=== PATIENT | male | born 1975 | race Caucasian/White ===

== ENCOUNTER 2019-07-08 10:04 | Emergency (ER) | payer OTHER, SELFPAY ==
[2019-07-08 10:35] VITALS: BP 166/101; PULSE 74; RESP 16; TEMP 36.9; O2SAT 93; BMI 31.5
--- NOTE | 2019-07-08 10:40 | DI.RAD.S_ITS ---
PROCEDURE: XR FOOT RT MIN 3V INDICATIONS: pain for 3 months TECHNIQUE: 3 views of the foot were acquired. COMPARISON: [facility], CR, XR ANKLE RT MIN 3V, 07/08/2019, 10:39. FINDINGS: Bones: No displaced fractures or dislocations. No suspicious bony lesions. The Soft tissues: No tibiotalar joint effusion. Mild soft tissue side on the dorsal aspect of the midfoot and forefoot is present. No radiopaque foreign bodies are appreciated. IMPRESSION: No acute osseous abnormality of the right foot. Dictated by: Woody Kearns M.D. on 07/08/2019 at 10:08 Approved by: Woody Kearns M.D. on 07/08/2019 at 10:11
--- NOTE | 2019-07-08 10:40 | DI.RAD.S_ITS ---
PROCEDURE: XR ANKLE RT MIN 3V INDICATIONS: pain for 3 months TECHNIQUE: 3 views of the ankle were acquired. COMPARISON: [facility], CR, XR FOOT RT MIN 3V, 07/08/2019, 10:39. FINDINGS: Bones: No displaced fractures or dislocations. Ankle mortise is normally aligned. No suspicious bony lesions. Soft tissues: No tibiotalar joint effusion. Achilles tendon appears normal. IMPRESSION: No acute osseous abnormality of the right ankle. Dictated by: Woody Kearns M.D. on 07/08/2019 at 10:02 Approved by: Woody Kearns M.D. on 07/08/2019 at 10:08
--- NOTE | 2019-07-08 14:06 | ED.LOWEXIN ---
HPI - Extremity Injury (Lower) <ARSLAN Kim - Last Filed: 07/08/19 21:29> General Chief Complaint: Extremity Injury, Lower Stated Complaint: right foot/ankle swelling/pain Time Seen by Provider: 07/08/19 13:49 Source: patient Mode of arrival: Ambulatory History of Present Illness HPI Narrative: 43-year-old healthy male, presents emergency department today complaining of right ankle and foot pain. He states this started a few months ago. It is a dull aching pain that causes occasional swelling intermittently. He states the pain starts in the medial malleolus and radiates to the lateral malleolus and down his 5th metatarsal. Pain is worse about a day after use such as burning or hiking downhill. He denies any injury to the area. He denies any previous surgeries to the area. Patient denies any numbness, tingling, erythema, increased temperature, knee pain, chest pain, shortness of breath, nausea, vomiting, or diarrhea. Related Data Allergies Allergy/AdvReac Type Severity Reaction Status Date / Time No Known Drug Allergies Allergy Verified 07/08/19 10:35 Review of Systems <ARSLAN Kim - Last Filed: 07/08/19 21:29> Review of Systems Narrative: REVIEW OF SYSTEMS: GENERAL: Denies fever or chills. HENT: No head trauma. EYES: No double vision or vision loss. CARDIOVASCULAR: No chest pain or syncope. RESPIRATORY: No shortness of breath or cough. GASTROINTESTINAL: No nausea, vomiting, diarrhea, or constipation. GENITOURINARY: No flank pain or dysuria. MUSCULOSKELETAL: Complains of right foot pain, see HPI. INTEGUMENTARY: No rash, lesions, or pruritus. NEURO: No numbness, tingling. PSYCH: No behavior or mood changes. PFSH <ARSLAN Kim - Last Filed: 07/08/19 21:29> Medical History No significant social history (Acute) Social History Smoking Status: Never smoker Social History Smoking Status: Never smoker Exam <ARSLAN Kim - Last Filed: 07/08/19 21:29> Narrative Exam Narrative: PHYSICAL EXAMINATION: GENERAL: Well groomed, alert, and cooperative. Answers questions promptly and appropriately. Vital signs noted. HENT: Normocephalic, atraumatic. EYES: Symmetrical, sclera white, no periorbital swelling. CARDIOVASCULAR: S1 and S2 sounds normal. Regular rate and rhythm, no murmurs, clicks, or bruits. No pedal edema. RESPIRATORY: Normal respiratory rate, trachea midline, airway patent. No stridor, nasal flaring or accessory muscle use. Lungs are clear in all bautista. MUSCULOSKELETAL: Tenderness with palpation over the lower extensor retinaculum tendon, full range of motion of ankle and foot, no tenderness to palpation of 5th metatarsal. No swelling, surrounding erythema, or increased warmth. No lesions present. Normal gait and coordination. Equal tone and mass bilaterally. No spinal tenderness or deformities. EXTREMITIES: CMS intact. No pedal edema. SKIN: Warm, dry, soft, appropriate color for ethnicity. No lesions, rashes, or wounds. NEURO: Alert and Oriented X 3. No sensory deficits. PSYCH: Appropriate affect and mood. Initial Vital Signs Initial Vital Signs: Vital Signs Temperature 98.4 F 07/08/19 10:35 Pulse Rate 74 07/08/19 10:35 Respiratory Rate 16 07/08/19 10:35 Blood Pressure 166/101 H 07/08/19 10:35 Pulse Oximetry 93 07/08/19 10:35 <Nellie Joyner DO - Last Filed: 07/09/19 08:51> Initial Vital Signs Initial Vital Signs: Vital Signs Temperature 98.4 F 07/08/19 10:35 Pulse Rate 74 07/08/19 10:35 Respiratory Rate 16 07/08/19 10:35 Blood Pressure 166/101 H 07/08/19 10:35 Pulse Oximetry 93 07/08/19 10:35 Course <ARSLAN Kim - Last Filed: 07/08/19 21:29> Orders Ordered: Discontinued Medications Ketorolac Tromethamine (Toradol) 30 mg IM NOW ONE Stop: 07/08/19 13:59 Last Admin: 07/08/19 14:11 Dose: 30 mg Documented by: ROCIO Vital Signs Vital signs: Vital Signs - 8 hr 07/08/19 14:19 Pulse Rate 80 Respiratory Rate 18 Blood Pressure 151/105 H Pulse Oximetry 98 <Nellie Joyner DO - Last Filed: 07/09/19 08:51> Orders Ordered: Discontinued Medications Ketorolac Tromethamine (Toradol) 30 mg IM NOW ONE Stop: 07/08/19 13:59 Last Admin: 07/08/19 14:11 Dose: 30 mg Documented by: ROCIO Vital Signs Vital signs: Vital Signs - 8 hr 07/08/19 14:19 Pulse Rate 80 Respiratory Rate 18 Blood Pressure 151/105 H Pulse Oximetry 98 MDM - Extremity Injury (Lower) <Elisa ZaldivarARSLAN hernandez - Last Filed: 07/08/19 21:29> Medical Records Attestation: I reviewed the patient's medical records. Lab Data Attestation: I reviewed the patient's lab results. Imaging Data R Foot: Radiologist's impression: [address] [address] XRay Report Signed Patient: Shelton Carranza [facility]#: [id number] : 1975Acct:[id number] Age/Sex: 43 / MDate of Service: 07/08/19 Loc: ED Accession Number: [id number] Procedure: XR foot RT min 3V Ordering Provider: Nellie Joyner D.O. PROCEDURE: XR FOOT RT MIN 3V INDICATIONS: pain for 3 months TECHNIQUE: 3 views of the foot were acquired. COMPARISON: [facility], [place], XR ANKLE RT MIN 3V, 07/08/2019, 10:39. FINDINGS: Bones: No displaced fractures or dislocations. No suspicious bony lesions. The Soft tissues: No tibiotalar joint effusion. Mild soft tissue side on the dorsal aspect of the midfoot and forefoot is present. No radiopaque foreign bodies are appreciated. IMPRESSION: No acute osseous abnormality of the right foot. Dictated by: Woody Kearns M.D. on 07/08/2019 at 10:08 Approved by: Woody Kearns M.D. on 07/08/2019 at 10:11 R Ankle: Radiologist's impression: [address] [address] XRay Report Signed Patient: Shelton Carranza [facility]#: [id number] : 1975Acct:[id number] Age/Sex: 43 / MDate of Service: 07/08/19 Loc: ED Accession Number: [id number] Procedure: XR ankle RT min 3V Ordering Provider: Nellie Joyner D.O. PROCEDURE: XR ANKLE RT MIN 3V INDICATIONS: pain for 3 months TECHNIQUE: 3 views of the ankle were acquired. COMPARISON: [facility], CR, XR FOOT RT MIN 3V, 07/08/2019, 10:39. FINDINGS: Bones: No displaced fractures or dislocations. Ankle mortise is normally aligned. No suspicious bony lesions. Soft tissues: No tibiotalar joint effusion. Achilles tendon appears normal. IMPRESSION: No acute osseous abnormality of the right ankle. Dictated by: Woody Kearns M.D. on 07/08/2019 at 10:02 Approved by: Woody Kearns M.D. on 07/08/2019 at 10:08 [facility] Narrative Medical decision making narrative: I suspect that patient's symptoms are most likely caused by tendinitis (gradual onset, report of direct trauma, worsening pain with exacerbation, negative x-ray). Differential includes but is less likely fracture (negative x-ray), gout (no erythema, increased temperature, or notable swelling), or arthritis. Patient was referred to podiatry per request. Return precautions given and follow-up instructions discussed Discharge Plan Departure Patient Disposition: Home Clinical Impression: Acute ankle pain Qualifiers: Laterality: right Qualified Code(s): M25.571 - Pain in right ankle and joints of right foot Discharge Date/Time: 07/08/19 14:19 Instructions: DI for Tendinitis, DI for Ankle Pain Activity Restrictions/Additional Instructions: Thank you for entrusting me with your care today. As discussed, your x-rays are negative for any fractures. As discussed, it is possible that your foot pain is caused from inflammation such as tendinitis. We have given you anti-inflammatory today in the emergency department. Tomorrow you may take ibuprofen 600mg every 6 hours for 4 days to decrease inflammation. I have referred you to a pulp bleacher, please make an appointment as soon as possible. Return to the emergency department if you develop chest pain, shortness of breath, abdominal pain, high fevers, or other concerning symptoms. Referrals: Logan Zhu DPM [Physician] - (Right Ankle/foot pain and swelling x 3 months, neg x-tray. Evaluate and treat. )
[2019-07-08] MEDS: KETOROLAC 60 MG/2 ML VIAL 30 MG IM (14:11)
[2019-07-08 14:19] VITALS: BP 151/105; PULSE 80; RESP 18; O2SAT 98
== END 2019-07-08 14:19 | disposition home or self-care (01) ==
PROVIDERS: Emergency Provider Nurse Practitioner
DX: M25.571 Pain in right ankle and joints of right foot (principal)
CPT/HCPCS: 73610; 73630; 96372; 99282; 99283; J1885

== ENCOUNTER → 2019-11-10 09:33 | Outpatient (CLI) | payer OTHER, SELFPAY ==
--- NOTE | 2019-11-10 | DI.MRI.S_ITS ---
PROCEDURE: MRFOOT LT WO CON INDICATIONS: Contusion of left great toe without damage to nail TECHNIQUE: Noncontrast sagittal T1 spin echo and T2 fast spin echo with fat saturation, long-axis T1 spin echo and T2 fast spin echo with fat saturation, short-axis T1 spin echo and T2 fast spin echo with fat saturation through the forefoot. COMPARISON: [facility] [place], CR, XR FOOT 3+ VIEWS LEFT, 09/23/2019, 12:12. FINDINGS: Image quality: Diagnostic. Bones and joints: There is moderate marrow edema identified involving the neck and head of the 1st and 2nd metatarsals without a discrete fracture evident. There is no dislocation. A 1st metatarsal phalangeal joint effusion is present, however. Otherwise, the remainder of the imaged osseous structures of the midfoot and forefoot are within normal limits. No suspicious osseous lesions are identified. Soft tissues: Mild subcutaneous edema about the forefoot is identified that is predominantly centered about the medial aspect of the forefoot. No drainable or loculated fluid collections are evident. No soft tissue masses are appreciated. The flexor and extensor tendons of the midfoot and forefoot appear to be intact and are otherwise unremarkable. The Lisfranc ligament is grossly intact. A small amount of fluid is located between the 1st/2nd, 2nd/3rd, and 3rd/4th metatarsal heads. IMPRESSION: 1. Bone contusions of the 1st and 2nd metatarsal heads without fractures evident. 2. Soft tissue swelling about the medial aspect of the forefoot probably is related to recent injury. 3. Minimal fluid between the multiple metatarsal heads represent intermetatarsal bursitis. Dictated by: Woody Kearns M.D. on 11/10/2019 at 14:50 Approved by: Woody Kearns M.D. on 11/10/2019 at 14:54
== END ==
PROVIDERS: Referring Provider Podiatrist; Visit Provider Podiatrist
DX: S90.112D Contusion of left great toe without damage to nail, subsequent encounter (principal); M79.89 Other specified soft tissue disorders; X58.XXXD Exposure to other specified factors, subsequent encounter
CPT/HCPCS: 73718

== ENCOUNTER 2021-03-09 09:41 | Emergency (ER) | payer OTHER, SELFPAY ==
[2021-03-09 09:51] VITALS: BP 181/105; PULSE 92; RESP 18; TEMP 37; O2SAT 98; BMI 30.8
--- NOTE | 2021-03-09 09:55 | ED_ITS ---
HPI - General Adult General Chief complaint: Extremity Problem,Nontraumatic Stated complaint: swelling and pain in right foot Time Seen by Provider: 03/09/21 09:43 Source: patient Mode of arrival: Ambulatory Limitations: no limitations History of Present Illness HPI narrative: Patient is an otherwise healthy 45-year-old male here for evaluation of redness and pain to the right foot/toes. He states that approximately 1 week ago he started having discomfort at the bottom of the 2nd and 3rd toes and over this time it has now moved to his great toe. He has never had gout in the past. Has not been evaluated for this in the past. No fevers. No trauma. Related Data Previous Rx's Medication Instructions Recorded prednisone 20 mg PO BID #30 tab 03/09/21 Allergies Allergy/AdvReac Type Severity Reaction Status Date / Time No Known Drug Allergies Allergy Verified 03/09/21 09:54 Review of Systems Constitutional Constitutional: Denies fever(s) Musculoskeletal Musculoskeletal: Denies tingling Comments: Right foot pain Integumentary/Breasts Comments: Redness along the right foot Neurologic Neurologic: Denies tingling Hematologic/Lymphatic On Anticoagulants: No Allergic/Immunologic Allergic/Immunologic: Reports system reviewed and no additional complaints, except as documented Patient History Medical History No significant social history Social History Smoking Status: Never smoker Smoking Status: Never smoker alcohol intake frequency: a few times a week Substance Use Type: does not use Exam Initial Vital Signs Initial Vital Signs: Vital Signs Temperature 98.6 F 03/09/21 09:51 Pulse Rate 92 H 03/09/21 09:51 Respiratory Rate 18 03/09/21 09:51 Blood Pressure 181/105 H 03/09/21 09:51 Pulse Oximetry 98 03/09/21 09:51 Const General: cooperative and comfortable Limitations: mental status not altered HENFL Head: normal to inspection and normocephalic Cardio Pulses: dorsalis pedis present on the right Skin Other: Patient does have redness along the MTP joint of the right great toe. There is some redness however to a lesser degree along the 2nd and 3rd MTP joint. Neuro Sensory Exam: no sensory deficits noted Extrem Other: Patient does have tenderness with movement of the MTP joint of the right great toe. No ankle tenderness. No calf tenderness. Psych Appearance: grossly normal and well kempt Course Orders Ordered: ED Orders 03/09/21 09:55 XR foot RT min 3V Stat 03/09/21 10:28 Basic Metabolic Panel Stat C-Reactive Protein Quant Stat Complete Blood Count AUTO DIFF Stat Erythrocyte Sedimentation Rate Stat Uric Acid Stat Vital Signs Vital signs: Vital Signs - 8 hr 03/09/21 09:51 Temperature 98.6 F Pulse Rate 92 H Respiratory Rate 18 Blood Pressure 181/105 H Pulse Oximetry 98 Medical Decision Making Lab Data Lab results reviewed: Yes I reviewed the patient's lab results. Result diagrams: 03/09/21 10:28 03/09/21 10:28 Labs: Lab Results 03/09/21 03/09/21 Range/Units 10:28 10:28 WBC 6.6 (4.5-11.0) X10^3/uL RBC 4.20 L (4.5-5.9) X10^6/uL Hgb 12.9 L (13.5-17.5) g/dL Hct 38.1 L (41-53) % MCV 90.7 (80-100) fL MCH 30.7 (26-34) PG MCHC 33.9 (30-36) % RDW 13.1 (11.6-14.8) % Plt Count 199 (150-400) X10^3/uL Neut % (Auto) 66.2 (50-75) % Lymph % (Auto) 22.3 L (25-40) % [place] % (Auto) 9.2 (3-14) % Eos % (Auto) 1.7 L (2-4) % Baso % (Auto) 0.6 (0-2) % Neut # (Auto) 4400 (3056-4855) /uL Lymph # (Auto) 1500 (7043-0812) /uL [place] # (Auto) 600 (0-900) /uL Eos # (Auto) 100 (0-450) /uL Baso # (Auto) 0 (0-100) /uL ESR 57 H (0-15) MM/HR Sodium 139 (137-145) mmol/L Potassium 4.2 (3.4-5.1) mmol/L Chloride 105 (98-107) mmol/L Carbon Dioxide 25 (22-32) mmol/L BUN 15 (9-20) mg/dL Creatinine 0.70 (0.66-1.25) mg/dL Estimated GFR > 60.0 (>60) mL/min BUN/Creatinine Ratio 21.4 (6-22) Glucose 117 H (70-100) mg/dL Uric Acid 8.3 (3.5-8.5) mg/dL Calcium 9.7 (8.4-10.2) mg/dL C-Reactive Protein 4.0 H (<1.0) mg/dL Imaging Data Extremity x-ray #1: Radiologist's Impression: [place] [id number] [place] [id number] ReportSigned Patient: Shelton Carranza [facility]#: [id number]: 1975Acct:[id number]/Sex: 45 / MDate of Service: 03/09/21Loc: EDAccession Number: [id number] Procedure: XR foot RT min 3V Ordering Provider: Mango Villarreal D.O. PROCEDURE: XR FOOT RT MIN 3V INDICATIONS: right great toe pain TECHNIQUE: 3 views of the foot were acquired. COMPARISON: [facility], , XR FOOT RT MIN 3V, 07/08/2019, 10:39. FINDINGS: Bones: No fractures or dislocations. No suspicious bony lesions. Soft tissues: No tibiotalar joint effusion. Achilles tendon appears normal. IMPRESSION: No red cute right foot fracture or dislocation. No suspicious bony lesion. Dictated by: Beni Romero M.D. on 03/09/2021 at 10:25 Approved by: Beni Romero M.D. on 03/09/2021 at 10:29 [facility] Narrative Medical decision making narrative: Patient does not have a leukocytosis. He does have a normal uric acid. Does have an elevated ESR and CRP. His x-ray shows no signs of fracture. Did consider inflammatory versus infectious etiology. He is very well appearing. Has had symptoms for the past week and the redness has not moved up his foot. He is systemically is nontoxic. Despite the normal uric acid his physical exam today is very consistent with gout. I suspect that it is this verses a infection however we did discuss the 2 po ssibilities and he was given strict return precautions. He has been taking anti-inflammatories at home without much improvement. Plan will be is to treat this as a gout flare and have him return if his symptoms worsen. Expressed understanding and agreement. Discharge Plan Departure Patient Disposition: Home Clinical Impression: Gout Instructions: Gout (Alternative Therapy), DI for Gout Activity Restrictions/Additional Instructions: Like we discussed here in the emergency department we are going to treat this like a gout flare however if you start to feel poorly, have fevers, the redness started spreading up your foot you do need to return to the emergency department for further evaluation. Contact your medical department for follow-up. Prescriptions: New prednisone 20 mg tablet 20 mg PO BID Qty: 30 RF: 0 Referrals: Pedro Farmer [Primary Care Provider] -
[2021-03-09 10:36] LABS: Add Manual Diff / Slide Review NO; Basophils Absolute Auto 0 /uL (0-100); Basophils Percent Auto 0.6 % (0-2); Eosinophils Absolute Auto 100 /uL (0-450); Eosinophils Percent Auto 1.7 % (2-4); Hematocrit 38.1 % (41-53); Hemoglobin 12.9 g/dL (13.5-17.5); Lymphocytes Absolute Auto 1500 /uL (1100-4500); Lymphocytes Percent Auto 22.3 % (25-40); Mean Corpuscular HGB Conc 33.9 % (30-36); Mean Corpuscular Hemoglobin 30.7 PG (26-34); Mean Corpuscular Volume 90.7 fL (80-100); Monocytes Absolute Auto 600 /uL (0-900); Monocytes Percent Auto 9.2 % (3-14); Neutrophils Absolute Auto 4400 /uL (1500-7000); Neutrophils Percent Auto 66.2 % (50-75); Platelet Count 199 X10^3/uL (150-400); Red Cell Distribution Width 13.1 % (11.6-14.8); White Blood Cell Count 6.6 X10^3/uL (4.5-11.0)
[2021-03-09 10:52] LABS: BUN Creatinine Ratio 21.4 (6-22); Blood Urea Nitrogen 15 mg/dL (9-20); Calcium 9.7 mg/dL (8.4-10.2); Carbon Dioxide 25 mmol/L (22-32); Chloride 105 mmol/L (98-107); Estimated Glomerular Filt Rate > 60.0 mL/min (>60); Glucose 117 mg/dL (70-100); HEMOLYSIS < 15 (0-50); Potassium 4.2 mmol/L (3.4-5.1); Sodium 139 mmol/L (137-145); Uric Acid 8.3 mg/dL (3.5-8.5)
[2021-03-09 10:55] LABS: Erythrocyte Sedimentation Rate 57 MM/HR (0-15)
[2021-03-09 11:56] VITALS: BP 152/76; PULSE 78; RESP 17; O2SAT 99
== END 2021-03-09 11:57 | disposition home or self-care (01) ==
PROVIDERS: Emergency Provider Emergency Medicine
DX: M10.9 Gout, unspecified (principal)
CPT/HCPCS: 36415; 73630; 80048; 84550; 85025; 85651; 86140; 99283; 99284

== ENCOUNTER → 2024-02-09 15:46 | Outpatient (CLI) | payer OTHER, SELFPAY ==
--- NOTE | 2024-02-09 15:48 | DI.MRI.S_ITS ---
PROCEDURE: MR ANKLE LT WO CON INDICATIONS: Pain in right ankle;Pain in left ankle TECHNIQUE: Noncontrast sagittal T1 spin echo and T2 fast spin echo with fat saturation, axial proton density fast spin echo and T2 fast spin echo with fat saturation, coronal T1 spin echo and T2 fast spin echo with fat saturation through the ankle/hindfoot. COMPARISON: None. FINDINGS: Image quality: Excellent Tendons: Mild tenosynovitis of the posterior tibialis and the flexor digitorum longus. The flexor hallucis longus is unremarkable. The peroneal, extensor, in the distal Achilles tendon are unremarkable. Trace retrocalcaneal bursitis. Ligaments: There is a large osteophyte arising from the lateral malleolus at the expected location of the anterior tibiofibular ligament, likely representing prior injury. There is pseudoarthrosis of this lateral malleolar osteophyte with the lateral aspect of tibial plafond, with mild associated subchondral cystic changes and marrow edema. The anterior tibiofibular ligament is thinned, representing prior sprain, but is intact. The posterior tibiofibular ligament is intact. Prior sprain of the anterior talofibular ligament. The posterior talofibular ligament is intact. Prior sprain of the deep portion of the deltoid ligament. Sinus tarsi: No fibrosis. Plantar fascia: Unremarkable. Muscles: Unremarkable Bones: Mild marrow edema at the medial malleolus, likely reactive. No osteochondral lesion of the talus dome. Multifocal subchondral marrow edema within the tarsal bones, likely representing the moderate degenerative changes. No acute fracture. Please see above. Small tibiotalar and small posterior subtalar effusion. IMPRESSION: 1. Large osteophyte arising from the lateral malleolus with pseudoarthrosis and mild degenerative changes with the latter aspect of tibial plafond. 2. Prior sprain of the lateral and medial ankle ligament without full-thickness tear. 3. Moderate degenerative changes in the midfoot. Dictated by: Angelica La M.D. on 02/09/2024 at 16:40 Approved by: Angelica La M.D. on 02/09/2024 at 16:50
--- NOTE | 2024-02-09 16:04 | DI.MRI.S_ITS ---
PROCEDURE: MR ANKLE RT WO/W CON INDICATIONS: Pain in right ankle;Pain in left ankle TECHNIQUE: Noncontrast sagittal T1 spin echo and T2 fast spin echo with fat saturation, axial proton density fast spin echo and T2 fast spin echo with fat saturation, axial T1 spin echo with fat saturation, coronal T1 spin echo and T2 fast spin echo with fat saturation through the ankle/hindfoot. Post-contrast axial, coronal, and sagittal T1 spin echo with fat saturation through the ankle/hindfoot. COMPARISON: [facility] [place], [place], XR ANKLE 3+ VIEWS RIGHT, 01/13/2024, 16:30. FINDINGS: Image quality: Excellent Corresponding to the pain marker about the medial malleolus, there is a 7 mm T1 hypointense, T2 hyperintense nodule with enhancement in the subcutaneous fat, immediately abutting the medial cortex of the tibial plafond, with associated mild erosion. There is associated mild marrow edema in the medial tibial plafond. Tendons: Mild tenosynovitis of the posterior tibialis and the flexor digitorum longus. The flexor hallucis longus is unremarkable. The peroneal, extensor, in the distal Achilles tendon is unremarkable. Trace retrocalcaneal bursitis. Ligaments: The anterior and posterior tibial fibular ligaments are intact. The anterior and posterior talofibular ligaments are intact. The calcaneofibular ligament is intact. Prior sprain of the deep portion of the deltoid ligament. Sinus tarsi: No fibrosis. Plantar fascia: Unremarkable Muscles: Unremarkable Bones: Please see above. In addition, there is marrow edema about the 5th tarsal metatarsal joint, most pronounced at the base of the 5th metatarsal, favoring degenerative. There is marked marrow edema about the 2nd tarsometatarsal joint, favored to represent moderate degenerative changes as well. Marrow edema of the proximal 2nd metatarsal diaphysis, partially visualize , nonspecific. No associated fracture line. 9 mm ganglion cyst medial to the 1st tarsometatarsal joint. No significant tibiotalar or posterior subtalar effusion. IMPRESSION: 1. 7 mm enhancing nodule in the subcutaneous fat of the medial ankle, resulting in erosion and mild marrow edema of the medial tibial plafond. Recommend further evaluation with tissue sampling. This lesion should be accessible by ultrasound approach. 2. Marrow edema about the 2nd and 5th tarsometatarsal joint, favored to represent moderate degenerative changes. Additional marrow edema of the proximal 2nd metatarsal diaphysis, partially visualized and is nonspecific. 3. 9 mm ganglion cyst medial to the 1st tarsometatarsal joint. Dictated by: Angelica La M.D. on 02/10/2024 at 9:24 Approved by: Angelica La M.D. on 02/10/2024 at 9:36
== END ==
PROVIDERS: Referring Provider Podiatrist; Visit Provider Podiatrist
DX: M65.872 Other synovitis and tenosynovitis, left ankle and foot (principal); M65.871 Other synovitis and tenosynovitis, right ankle and foot; R22.41 Localized swelling, mass and lump, right lower limb; M67.471 Ganglion, right ankle and foot; M25.472 Effusion, left ankle; M25.772 Osteophyte, left ankle; R60.0 Localized edema; M25.572 Pain in left ankle and joints of left foot; M25.571 Pain in right ankle and joints of right foot; Z87.828 Personal history of other (healed) physical injury and trauma
CPT/HCPCS: 73721; 73723; A9579

== ENCOUNTER → 2024-08-09 11:57 | Outpatient (CLI) | payer OTHER, SELFPAY ==
--- NOTE | 2024-08-09 12:40 | DI.RAD.S_ITS ---
PROCEDURE: XR HAND LT MIN 3V INDICATIONS: Other specified arthritis, unspecified site TECHNIQUE: 3 views of the hand(s) acquired. COMPARISON: None. FINDINGS: Bones: There are no osseous abnormalities Joints: Minimal degenerative changes seen in the 1st CMC and all interphalangeal joints. Mild periarticular osteoporosis seen in all joints. Soft tissues: No soft tissue abnormality. IMPRESSION: Minimal degenerative change 1st CMC and all interphalangeal joints Dictated by: Yuan Mendoza M.D. on 08/10/2024 at 9:58 Approved by: Yuan Mendoza M.D. on 08/10/2024 at 10:00
--- NOTE | 2024-08-09 12:40 | DI.RAD.S_ITS ---
PROCEDURE: XR TIBIA FIBULA LT 2V INDICATIONS: Other specified arthritis, unspecified site TECHNIQUE: 2 views of the tibia and fibula were acquired. COMPARISON: None. FINDINGS: Bones: There are no osseous abnormalities Joints: The joint spaces are normal in width and alignment without arthritic change. Soft tissues: No soft tissue abnormality. IMPRESSION: Normal. Dictated by: Yuan Mendoaz M.D. on 08/10/2024 at 10:03 Approved by: Yuan Mendoza M.D. on 08/10/2024 at 10:03
--- NOTE | 2024-08-09 12:40 | DI.RAD.S_ITS ---
PROCEDURE: XR HAND RT MIN 3V INDICATIONS: Other specified arthritis, unspecified site TECHNIQUE: 3 views of the hand(s) acquired. COMPARISON: None. FINDINGS: Bones: There are no osseous abnormalities Joints: Minimal degenerative change is present in the distal radial ulnar, 1st CMC and all interphalangeal joints. There is mild periarticular osteoporosis in all joints. Soft tissues: No soft tissue abnormality. IMPRESSION: Minimal degeneration Dictated by: Yuan Mendoza M.D. on 08/10/2024 at 9:55 Approved by: Yuan Mendoza M.D. on 08/10/2024 at 9:56
--- NOTE | 2024-08-09 12:40 | DI.RAD.S_ITS ---
PROCEDURE: XR FOOT LT MIN 3V INDICATIONS: Other specified arthritis, unspecified site TECHNIQUE: 3 views of the foot were acquired. COMPARISON: [facility], CR, XR FOOT RT MIN 3V, 03/09/2021, 10:18. FINDINGS: Bones: Prominent spurring from the anterior tibial plafond may predispose to anterior impingement on ankle dorsiflexion. 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 Joints: Moderate 1st MTP degenerative change noted . there is also mild to moderate degenerative change in all interphalangeal joints Soft tissues: No soft tissue abnormality. IMPRESSION: Chronic findings that as described Dictated by: Yuan Mendoza M.D. on 08/10/2024 at 9:56 Approved by: Yuan Mendoza M.D. on 08/10/2024 at 9:58
--- NOTE | 2024-08-09 12:40 | DI.RAD.S_ITS ---
PROCEDURE: XR FOOT RT MIN 3V INDICATIONS: Other specified arthritis, unspecified site TECHNIQUE: 3 views of the foot were acquired. COMPARISON: [facility], CR, XR FOOT RT MIN 3V, 03/09/2021, 10:18. 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 Joints: Mild degenerative change present the 1st MTP and all interphalangeal joints. Soft tissues: No soft tissue abnormality. IMPRESSION: Mild degeneration Dictated by: Yuan Mendoza M.D. on 08/10/2024 at 10:00 Approved by: Yuan Mendoza M.D. on 08/10/2024 at 10:01
== END ==
PROVIDERS: Referring Provider Chiropractor; Visit Provider Chiropractor
DX: M13.80 Other specified arthritis, unspecified site (principal); R05.3 Chronic cough; R93.6 Abnormal findings on diagnostic imaging of limbs
CPT/HCPCS: 73130; 73590; 73630; 94060

== ENCOUNTER → 2025-01-07 07:19 | Outpatient (CLI) | payer OTHER, SELFPAY ==
[2025-01-07 07:37] LABS: Hematocrit 38.1 % (41-53); Hemoglobin 12.9 g/dL (13.5-17.5); Mean Corpuscular HGB Conc 33.8 % (30-36); Mean Corpuscular Hemoglobin 30.2 PG (26-34); Mean Corpuscular Volume 89.3 fL (80-100); Platelet Count 254 X10^3/uL (150-400); Red Blood Cell Count 4.27 X10^6/uL (4.5-5.9); White Blood Cell Count 5.1 X10^3/uL (4.5-11.0)
[2025-01-07 08:07] LABS: Hemoglobin A1C% w Est Avg Glu 5.1 % (4.0-6.0)
[2025-01-07 08:14] LABS: Alanine Aminotransferase 33 IU/L (<50); Albumin 4.6 g/dL (3.5-5.0); Albumin Globulin Ratio 1.6 (1.0-2.8); Alkaline Phosphatase 78 U/L (38-126); Aspartate Aminotransferase 36 IU/L (17-59); BUN Creatinine Ratio 22.7 (6-22); Bilirubin Total 0.4 mg/dL (0.2-1.3); Blood Urea Nitrogen 20 mg/dL (9-20); Calcium 9.8 mg/dL (8.4-10.2); Carbon Dioxide 23 mmol/L (22-32); Chloride 105 mmol/L (98-107); Cholesterol 210 mg/dL (140-199); Estimated Glomerular Filt Rate > 60 mL/min (>60); Globulin 2.8 g/dL (1.7-4.1); Glucose 103 mg/dL (70-100); HDL Cholesterol 29 mg/dL (40-60); HEMOLYSIS < 15 (0-50); LDL Cholesterol Calculated 162 mg/dL (<100); Potassium 4.7 mmol/L (3.4-5.1); Sodium 139 mmol/L (137-145); Total Protein 7.4 g/dL (6.3-8.2); Triglycerides 93 mg/dL (35-150)
[2025-01-07 08:29] LABS: Microalbumin Urine Random 3.1 mg/dL (0-1.6)
[2025-01-07 08:31] LABS: Creatinine Urine Random 132.98 mg/dL
[2025-01-19 06:41] LABS: Percent Free Testosterone 3.29 % (1.50-4.20); Testosterone Total 1003.1 ng/dL (264.0-916.0)
== END ==
PROVIDERS: Family Provider Family Medicine; PCP Family Medicine; Referring Provider Family Medicine; Visit Provider Family Medicine
DX: I10 Essential (primary) hypertension (principal); R79.89 Other specified abnormal findings of blood chemistry
CPT/HCPCS: 36415; 80053; 80061; 82043; 82570; 83036; 84402; 84403; 85027

== ENCOUNTER → 2025-04-15 08:57 | Outpatient (CLI) | payer OTHER, SELFPAY ==
[2025-04-15 10:37] LABS: Estradiol, Total 29.3 pg/mL
== END ==
PROVIDERS: Family Provider Family Medicine; PCP Family Medicine; Referring Provider Urology; Visit Provider Urology
DX: R79.89 Other specified abnormal findings of blood chemistry (principal)
CPT/HCPCS: 36415; 82670; 84403

== ENCOUNTER 2025-04-29 09:00 | Outpatient (RCR) | payer OTHER, SELFPAY ==
--- NOTE | 2025-01-21 16:18 | PT.OIE ---
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 Eczema (~2006) Essential hypertension Fracture (~1984) Gout (~2021) Knee pain (~2006) Low testosterone in male No significant social history Tinnitus (~2014) Past Surgical History (Last Updated 01/03/25 @ 20:42 by Lillian Sharma) Anesthesia History of ankle surgery (~06/2024) Hx of LASIK (~05/2014) Radius/ulna fracture (~1979) Visit Care Team Role Provider Type Tremayne Schultz MD Attending Provider Physician Family Provider Primary Care Provider Referring Provider Specialty: Family Practice Obstetrics Address: [address] [place] [address], [facility] Email: [email or web address] Physical Therapy Initial Evaluation PT-OP-A Visit Information Start: 01/21/25 15:37 Freq: Status: Active Protocol: Document 01/21/25 09:00 DCW (Rec: 01/21/25 16:18 DC [id number]) Out-Patient Physical Therapy Visit Information Visit Information Visit Type Initial Evaluation Visit Start Time 09:00 Visit Stop Time 09:45 Visit Number 1 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 Pt reports initial injury occurred weight-lifting while doing a press, hurt enough that he was unable to lift for six months, then slowly recovered, and then for the next ~8 years, didn't bother him. Starting one year ago, the pain returned with no apparent injury. 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 Notes it hurts in [employer] classes, with rotation of his right arm, and with overhead movement. Has been fairly stable over the past year, but hoping pt will help in improve. Pt also complaining of bilateral, R>L foot pain. 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 Has a history of cuboid displacements bilaterally. Earlier this year had was was deemed an inflammation in both his great toe MTP, but was not gout. Recently has had fairly extensive soft tissue bruising along his medial right ankle, thinks it occurred following a day of standing for ~8 hours on concrete. Prior Treatments and Tests Right ankle MRI: IMPRESSION: 1. 7 mm enhancing nodule in the subcutaneous fat of the medial ankle, resulting in erosion and mild marrow edema of the medial tibial plafond. Recommend further evaluation with tissue sampling. This lesion should be accessible by ultrasound approach. 2. Marrow edema about the 2nd and 5th tarsometatarsal joint, favored to represent moderate degenerative changes. Additional marrow edema of the proximal 2nd metatarsal diaphysis, partially visualized and is nonspecific. 3. 9 mm ganglion cyst medial to the 1st tarsometatarsal joint. per Angelica La M.D. on 02/10/2024 Right foot x-ray: IMPRESSION: Mild degeneration. per Yuan Mendoza M.D. on 2023 PT-OP-C Subjective Start: 01/21/25 15:37 Freq: Status: Active Protocol: Document 01/21/25 09:00 DCW (Rec: 01/21/25 16:18 [facility] [id number]) OP-PT Subjective Patient Comments Patient Comments There's a lot of popping when I'm moving my arm in [employer] class, luckily the younger guys take it easy on me. Patient Questionnaires Quick Dash- Upper Extremity Quick Dash UE Score 25% Quick Dash UE Impairment 20 to 39% Impaired (Score 20- 39) PT-OP-F Manual Assessment Start: 01/21/25 15:37 Freq: Status: Active Protocol: Document 01/21/25 09:00 DCW (Rec: 01/21/25 16:18 DCW [id number]) Manual Assessments Soft Tissue Assessment Soft Tissue Mobility Assessment Tenderness to palpation 2/4: pain with wincing along R subacromial space, R supraspinatus, R infraspinatus , R posterior tib tendon, R deltoid ligament Joint Mobility Assessment Joint Mobility Assessment Moderate passive and active restriction of right 1st MTP joint, severe restriction in 1st IP joint PT-OP-K Range of Motion Start: 01/21/25 15:37 Freq: Status: Active Protocol: Document 01/21/25 09:00 DCW (Rec: 01/21/25 16:18 DCW [id number]) Shoulder Goniometric Range of Motion Shoulder Right Active Shoulder ROM WFL Yes Testing Position Sitting Flexion 180 Abduction 180 External Rotation at 0 degrees Abduction 75 Left Active Shoulder ROM WFL Yes Testing Position Sitting Flexion 180 Abduction 180 External Rotation at 0 degrees Abduction 75 Toe Range of Motion Toe Right Great Toe Toe ROM WFL Yes MTP Flexion Active (degrees) 14 MTP Extension Active (degrees) 28 Comments 1st IP active flexion lacking 6? from neutral. IP extension to 10? PT-OP-L Special Tests Start: 01/21/25 15:37 Freq: Status: Active Protocol: Document 01/21/25 09:00 DCW (Rec: 01/21/25 16:18 DCW [id number]) Special Tests Shoulder Special Tests Speed's Biceps Test Results Negative Grind Labrum Test Results Negative Painful Arc Test Results Positive R Passive ER Rotator Cuff Test Results Negative Lift-Off Rotator Cuff Test Results Positive R Mata Jeanc Laude Impingement Test Results Positive R Empty Can Test Results Positive R Drop Arm Rotator Cuff Test Results Negative Belly Press Test Results Negative Apprehension Test Test Results Negative PT-OP-M Strength Start: 01/21/25 15:37 Freq: Status: Active Protocol: Document 01/21/25 09:00 DCW (Rec: 01/21/25 16:18 DCW [id number]) Shoulder Strength Shoulder Manual Muscle Testing Right Flexion 5 Normal Abduction (C5) 4 Good External Rotation 5 Normal Internal Rotation 5 Normal Left Flexion 5 Normal Abduction (C5) 5 Normal External Rotation 5 Normal Internal Rotation 5 Normal PT-OP-T Assessment and Plan Start: 01/21/25 15:37 Freq: Status: Active Protocol: Document 01/21/25 09:00 DCW (Rec: 01/21/25 16:18 DCW [id number]) Physical Therapy Assessment Rehab Potential Rehabilitation Potential Good Evaluation Complexity Number of Personal Factors/Comorbidities 3 or More Number of Body Systems Impaired 4 or More Clinical Presentation at Evaluation Unstable Impairments Impairments Activity Tolerance,Functional Activities,Functional Mobility ,Pain,ROM,Soft Tissue Mobility ,Strength,Tone Goals Three Impairment ROM limitations in right great toe impact gait Guidance Counselor Goal (LTG) Pt to demonstrate improved great toe ROM to at least 45? extension at the MTP in order to help normalize gait pattern and reduce compensatory gait strategies. LTG Duration 03/23/25 Two Impairment Pt limited in [employer] class due to right shoulder pain Guidance Counselor Goal (LTG) Pt to exhibit negative painful arc and empty can testing to demonstrate improved shoulder function and return to full participation in [employer] class . LTG Duration 03/23/25 One Impairment Pt does not have an appropriate home exercise program Short Term Goal (STG) Pt to be independent and compliant with an appropriate HEP STG Duration 02/20/25 Assessment Summary Assessment Pt presents with signs and symptoms consistent with referring diagnosis. Pt's shoulder complaints appear suggestive of potential supraspinatus involvement, possibly subacromial impingement. Pain currently limiting his ability to perform overhead activities and fully participate in [employer]. Will likely benefit from strengthening of the shoulder complex, joint mobilization, flexibility, and improving scapulothoracic rhythm. His feet are more difficult to DDx. Between the tenderness along his right medial malleous and deltoid ligaments, and the medial bruising, appears to have recently suffered a ankle sprain, which pt denies. Additionally has some substantial limitations in his right great toe ROM, at both the MTP and IP joints. May benefit from strengthening of the intrinsic foot musculature , joint mobilizations, gait training, flexibility, STM to calf, and taping. Physical Therapy Plan Frequency and Duration Frequency of Treatment 1x/Week Plan of Care Start Date 01/21/25 Plan of Care End Date 03/23/25 Therapeutic Interventions Therapeutic Interventions Balance Training,Gait Training ,Home Exercise Program,Joint Mobilizations,Manual Therapy, Neuromuscular Re-education, Patient/Caregiver Education, Self-Care/Home Management,Soft Tissue Mobilization,Taping, Therapeutic Activities, Therapeutic Exercises Modalities Cold Pack/Ice Massage,Electric Stimulation,Hot Packs, Ultrasound Next Visit Focus/Plan Next Note Type Treatment Note Next Visit Plan Joint mobs, STM, strengthening , gait training
--- NOTE | 2025-01-21 16:19 | PT.OPPOC ---
Physical, Occupational & Speech Therapy At [facility] Current Diagnoses Other chronic pain (01/21/25) Pain in right shoulder (01/21/25) Pain in right ankle and joints of right foot (01/21/25) Pain in right foot (01/21/25) Pain in left foot (01/21/25) Visit Care Team Role Provider Type Tremayne Schultz MD Attending Provider Physician Family Provider Primary Care Provider Referring Provider Specialty: Family Practice Obstetrics Address: [facility] [place], [address] Email: [email or web address] Plan Of Care PT-OP-B Current Condition Start: 01/21/25 15:37 Freq: Status: Active Protocol: Document 01/21/25 09:00 DCW (Rec: 01/21/25 16:18 DCW [id number]) Current Condition History of Current Condition Onset Date ~10 year history Current Complaints Right shoulder pain, bilateral foot pain History of Current Condition Pt is a 49 year old male presenting with a ten year history of right shoulder pain . Pt reports initial injury occurred weight-lifting while doing a press, hurt enough that he was unable to lift for six months, then slowly recovered, and then for the next ~8 years, didn't bother him. Starting one year ago, the pain returned with no apparent injury. 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 Has been fairly stable over the past year, but hoping pt will help in improve. Pt also complaining of bilateral, R>L foot pain. 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 Has a history of cuboid displacements bilaterally. Earlier this year had was was deemed an inflammation in both his great toe MTP, but was not gout. Recently has had fairly extensive soft tissue bruising along his medial right ankle, thinks it occurred following a day of standing for ~8 hours on concrete. Prior Treatments and Tests Right ankle MRI: IMPRESSION: 1. 7 mm enhancing nodule in the subcutaneous fat of the medial ankle, resulting in erosion and mild marrow edema of the medial tibial plafond. Recommend further evaluation with tissue sampling. This lesion should be accessible by ultrasound approach. 2. Marrow edema about the 2nd and 5th tarsometatarsal joint, favored to represent moderate degenerative changes. Additional marrow edema of the proximal 2nd metatarsal diaphysis, partially visualized and is nonspecific. 3. 9 mm ganglion cyst medial to the 1st tarsometatarsal joint. per Angelica La M.D. on 02/10/2024 Right foot x-ray: IMPRESSION: Mild degeneration. per Yuan Mendoza M.D. on 2023 PT-OP-T Assessment and Plan Start: 01/21/25 15:37 Freq: Status: Active Protocol: Document 01/21/25 09:00 DCW (Rec: 01/21/25 16:18 DCW [id number]) Physical Therapy Assessment Rehab Potential Rehabilitation Potential Good Evaluation Complexity Number of Personal Factors/Comorbidities 3 or More Number of Body Systems Impaired 4 or More Clinical Presentation at Evaluation Unstable Impairments Impairments Activity Tolerance,Functional Activities,Functional Mobility ,Pain,ROM,Soft Tissue Mobility ,Strength,Tone Goals Three Impairment ROM limitations in right great toe impact gait Snf Goal (LTG) Pt to demonstrate improved great toe ROM to at least 45? extension at the MTP in order to help normalize gait pattern and reduce compensatory gait strategies. LTG Duration 03/23/25 Two Impairment Pt limited in [employer] class due to right shoulder pain Snf Goal (LTG) Pt to exhibit negative painful arc and empty can testing to demonstrate improved shoulder function and return to full participation in [employer] class . LTG Duration 03/23/25 One Impairment Pt does not have an appropriate home exercise program Short Term Goal (STG) Pt to be independent and compliant with an appropriate HEP STG Duration 02/20/25 Assessment Summary Assessment Pt presents with signs and symptoms consistent with referring diagnosis. Pt's shoulder complaints appear suggestive of potential supraspinatus involvement, possibly subacromial impingement. Pain currently limiting his ability to perform overhead activities and fully participate in [employer]itsu. Will likely benefit from strengthening of the shoulder complex, joint mobilization, flexibility, and improving scapulothoracic rhythm. His feet are more difficult to DDx. Between the tenderness along his right medial malleous and deltoid ligaments, and the medial bruising, appears to have recently suffered a ankle sprain, which pt denies. Additionally has some substantial limitations in his right great toe ROM, at both the MTP and IP joints. May benefit from strengthening of the intrinsic foot musculature , joint mobilizations, gait training, flexibility, STM to calf, and taping. Physical Therapy Plan Frequency and Duration Frequency of Treatment 1x/Week Plan of Care Start Date 01/21/25 Plan of Care End Date 03/23/25 Therapeutic Interventions Therapeutic Interventions Balance Training,Gait Training ,Home Exercise Program,Joint Mobilizations,Manual Therapy, Neuromuscular Re-education, Patient/Caregiver Education, Self-Care/Home Management,Soft Tissue Mobilization,Taping, Therapeutic Activities, Therapeutic Exercises Modalities Cold Pack/Ice Massage,Electric Stimulation,Hot Packs, Ultrasound Next Visit Focus/Plan Next Note Type Treatment Note Next Visit Plan Joint mobs, STM, strengthening , gait training Plan of Care Dates Plan of Care Start Date 01/21/25 Plan of Care End Date 03/23/25 Electronically Signed by: Alexy Sharp, PT 01/21/25 3106 If you are in agreement with this Plan of Care, please return a signed and dated copy. I have reviewed this Plan of Care and certify that the skilled therapy services above are required to meet the patient?s needs. Physician Signature Date Printed Name and Credentials Clinical Instructor Signature Printed Name and Credentials
--- NOTE | 2025-01-28 09:46 | PT.OTN ---
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 Pt reports initial injury occurred weight-lifting while doing a press, hurt enough that he was unable to lift for six months, then slowly recovered, and then for the next ~8 years, didn't bother him. Starting one year ago, the pain returned with no apparent injury. 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 Notes it hurts in [employer] classes, with rotation of his right arm, and with overhead movement. Has been fairly stable over the past year, but hoping pt will help in improve. Pt also complaining of bilateral, R>L foot pain. 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 Has a history of cuboid displacements bilaterally. Earlier this year had was was deemed an inflammation in both his great toe MTP, but was not gout. Recently has had fairly extensive soft tissue bruising along his medial right ankle, thinks it occurred following a day of standing for ~8 hours on concrete. Prior Treatments and Tests Right ankle MRI: IMPRESSION: 1. 7 mm enhancing nodule in the subcutaneous fat of the medial ankle, resulting in erosion and mild marrow edema of the medial tibial plafond. Recommend further evaluation with tissue sampling. This lesion should be accessible by ultrasound approach. 2. Marrow edema about the 2nd and 5th tarsometatarsal joint, favored to represent moderate degenerative changes. Additional marrow edema of the proximal 2nd metatarsal diaphysis, partially visualized and is nonspecific. 3. 9 mm ganglion cyst medial to the 1st tarsometatarsal joint. per Angelica La M.D. on 02/10/2024 Right foot x-ray: IMPRESSION: Mild degeneration. per Yuan Mendoza M.D. on 2023 PT-OP-C Subjective Start: 01/21/25 15:37 Freq: Status: Active Protocol: Document 01/28/25 09:00 DCW (Rec: 01/28/25 09:46 DCW [id number]) OP-PT Subjective Patient Comments Patient Comments My right shoulder is feeling a little better, but I think that's because I hurt my left shoulder, so now my focus is there instead. PT-OP-F Manual Assessment Start: 01/21/25 15:37 Freq: Status: Active Protocol: Document 01/21/25 09:00 DCW (Rec: 01/21/25 16:18 DCW [id number]) Manual Assessments Soft Tissue Assessment Soft Tissue Mobility Assessment Tenderness to palpation 2/4: pain with wincing along R subacromial space, R supraspinatus, R infraspinatus , R posterior tib tendon, R deltoid ligament Joint Mobility Assessment Joint Mobility Assessment Moderate passive and active restriction of right 1st MTP joint, severe restriction in 1st IP joint PT-OP-K Range of Motion Start: 01/21/25 15:37 Freq: Status: Active Protocol: Document 01/21/25 09:00 DCW (Rec: 01/21/25 16:18 DCW [id number]) Shoulder Goniometric Range of Motion Shoulder Right Active Shoulder ROM WFL Yes Testing Position Sitting Flexion 180 Abduction 180 External Rotation at 0 degrees Abduction 75 Left Active Shoulder ROM WFL Yes Testing Position Sitting Flexion 180 Abduction 180 External Rotation at 0 degrees Abduction 75 Toe Range of Motion Toe Right Great Toe Toe ROM WFL Yes MTP Flexion Active (degrees) 14 MTP Extension Active (degrees) 28 Comments 1st IP active flexion lacking 6? from neutral. IP extension to 10? PT-OP-L Special Tests Start: 01/21/25 15:37 Freq: Status: Active Protocol: Document 01/21/25 09:00 DCW (Rec: 01/21/25 16:18 MDW [id number]) Special Tests Shoulder Special Tests Speed's Biceps Test Results Negative Grind Labrum Test Results Negative Painful Arc Test Results Positive R Passive ER Rotator Cuff Test Results Negative Lift-Off Rotator Cuff Test Results Positive R Mata Jean Claude Impingement Test Results Positive R Empty Can Test Results Positive R Drop Arm Rotator Cuff Test Results Negative Belly Press Test Results Negative Apprehension Test Test Results Negative PT-OP-M Strength Start: 01/21/25 15:37 Freq: Status: Active Protocol: Document 01/21/25 09:00 DCW (Rec: 01/21/25 16:18 DCW [id number]) Shoulder Strength Shoulder Manual Muscle Testing Right Flexion 5 Normal Abduction (C5) 4 Good External Rotation 5 Normal Internal Rotation 5 Normal Left Flexion 5 Normal Abduction (C5) 5 Normal External Rotation 5 Normal Internal Rotation 5 Normal PT-OP-Q Treatments Start: 01/21/25 15:37 Freq: Status: Active Protocol: Document 01/28/25 09:00 DCW (Rec: 01/28/25 09:46 [facility] [id number]) Therapeutic Exercises Supine Exercises Serratus Punch Supine Exercise Name Serratus Punch Side bilateral Resistance 5# Prone Exercises I's, Y's, T's Prone Exercise Name I's, Y's, T's Side right Resistance 5# Sitting Exercises [place] Pick-up Sitting Exercise Name [place] Pick-up Side right Comments Intrinsic foot strengthening Manual Therapy Treatment Consent Patient gave verbal consent for manual Yes treatment Joint Mobilizations Shoulder Joint R GH Direction Inferior Grade III Body Position Supine Great Toe Joint R Great Toe Grade III Body Position Sitting Comments MTP, IP PT-OP-T Assessment and Plan Start: 01/21/25 15:37 Freq: Status: Active Protocol: Document 01/28/25 09:00 DCW (Rec: 01/28/25 09:46 DCW [id number]) Physical Therapy Assessment Impairments Impairments Activity Tolerance,Functional Activities,Functional Mobility ,Pain,ROM,Soft Tissue Mobility ,Strength,Tone Goals Three Impairment ROM limitations in right great toe impact gait Long-Term Goal (LTG) Pt to demonstrate improved great toe ROM to at least 45? extension at the MTP in order to help normalize gait pattern and reduce compensatory gait strategies. LTG Duration 03/23/25 Two Impairment Pt limited in [employer] class due to right shoulder pain Core Machine Tender Goal (LTG) Pt to exhibit negative painful arc and empty can testing to demonstrate improved shoulder function and return to full participation in [employer] class . LTG Duration 03/23/25 One Impairment Pt does not have an appropriate home exercise program Short Term Goal (STG) Pt to be independent and compliant with an appropriate HEP STG Duration 02/20/25 Assessment Summary Assessment Good response to treatment, pt showing increased MTP ROM. Agreeable to new HEP exercises . Pt did note increased L shoulder pain with activity, focused on just R. Continue to work on STM, joint mobs, and strengthening. Physical Therapy Plan Frequency and Duration Frequency of Treatment 1x/Week Plan of Care Start Date 01/21/25 Plan of Care End Date 03/23/25 Therapeutic Interventions Therapeutic Interventions Balance Training,Gait Training ,Home Exercise Program,Joint Mobilizations,Manual Therapy, Neuromuscular Re-education, Patient/Caregiver Education, Self-Care/Home Management,Soft Tissue Mobilization,Taping, Therapeutic Activities, Therapeutic Exercises Modalities Cold Pack/Ice Massage,Electric Stimulation,Hot Packs, Ultrasound Next Visit Focus/Plan Next Note Type Treatment Note Next Visit Plan Joint mobs, STM, strengthening , gait training
--- NOTE | 2025-02-04 09:44 | PT.OTN ---
Current Diagnoses Other chronic pain (02/04/25) Pain in right shoulder (02/04/25) Pain in right ankle and joints of right foot (02/04/25) Pain in right foot (02/04/25) Pain in left foot (02/04/25) Physical Therapy Treatment Note PT-OP-A Visit Information Start: 01/21/25 15:37 Freq: Status: Active Protocol: Document 02/04/25 07:26 AB (Rec: 02/04/25 09:04 AB Laptop) Out-Patient Physical Therapy Visit Information Visit Information Visit Type Treatment Note Visit Start Time 08:19 Visit Stop Time 09:02 Visit Number 3 Number of [employer] WORKER COMPOSITES Visits 1 Evaluation Information Evaluation Date 01/21/25 PT-OP-B Current Condition Start: 01/21/25 15:37 Freq: Status: Active Protocol: Document 01/21/25 09:00 DCW (Rec: 01/21/25 16:18 DCW [id number]) Current Condition History of Current Condition Onset Date ~10 year history Current Complaints Right shoulder pain, bilateral foot pain History of Current Condition Pt is a 49 year old male presenting with a ten year history of right shoulder pain . Pt reports initial injury occurred weight-lifting while doing a press, hurt enough that he was unable to lift for six months, then slowly recovered, and then for the next ~8 years, didn't bother him. Starting one year ago, the pain returned with no apparent injury. 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 Notes it hurts in [employer] classes, with rotation of his right arm, and with overhead movement. Has been fairly stable over the past year, but hoping pt will help in improve. Pt also complaining of bilateral, R>L foot pain. 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 Has a history of cuboid displacements bilaterally. Earlier this year had was was deemed an inflammation in both his great toe MTP, but was not gout. Recently has had fairly extensive soft tissue bruising along his medial right ankle, thinks it occurred following a day of standing for ~8 hours on concrete. Prior Treatments and Tests Right ankle MRI: IMPRESSION: 1. 7 mm enhancing nodule in the subcutaneous fat of the medial ankle, resulting in erosion and mild marrow edema of the medial tibial plafond. Recommend further evaluation with tissue sampling. This lesion should be accessible by ultrasound approach. 2. Marrow edema about the 2nd and 5th tarsometatarsal joint, favored to represent moderate degenerative changes. Additional marrow edema of the proximal 2nd metatarsal diaphysis, partially visualized and is nonspecific. 3. 9 mm ganglion cyst medial to the 1st tarsometatarsal joint. per Angelica La M.D. on 02/10/2024 Right foot x-ray: IMPRESSION: Mild degeneration. per Yuan Mendoza M.D. on 2023 PT-OP-C Subjective Start: 01/21/25 15:37 Freq: Status: Active Protocol: Document 02/04/25 07:26 AB (Rec: 02/04/25 09:04 AB Laptop) OP-PT Subjective Patient Comments Patient Comments Patient reports the shoulder is better, but still gets popping when raising his arm. Shelton reports the toe is still about the same. AROM R shoulder flexion 151 deg pain at 90 deg. PT-OP-F Manual Assessment Start: 01/21/25 15:37 Freq: Status: Active Protocol: Document 01/21/25 09:00 DCW (Rec: 01/21/25 16:18 DCW [id number]) Manual Assessments Soft Tissue Assessment Soft Tissue Mobility Assessment Tenderness to palpation 2/4: pain with wincing along R subacromial space, R supraspinatus, R infraspinatus , R posterior tib tendon, R deltoid ligament Joint Mobility Assessment Joint Mobility Assessment Moderate passive and active restriction of right 1st MTP joint, severe restriction in 1st IP joint PT-OP-K Range of Motion Start: 01/21/25 15:37 Freq: Status: Active Protocol: Document 01/21/25 09:00 DCW (Rec: 01/21/25 16:18 DCW [id number]) Shoulder Goniometric Range of Motion Shoulder Right Active Shoulder ROM WFL Yes Testing Position Sitting Flexion 180 Abduction 180 External Rotation at 0 degrees Abduction 75 Left Active Shoulder ROM WFL Yes Testing Position Sitting Flexion 180 Abduction 180 External Rotation at 0 degrees Abduction 75 Toe Range of Motion Toe Right Great Toe Toe ROM WFL Yes MTP Flexion Active (degrees) 14 MTP Extension Active (degrees) 28 Comments 1st IP active flexion lacking 6? from neutral. IP extension to 10? PT-OP-L Special Tests Start: 01/21/25 15:37 Freq: Status: Active Protocol: Document 01/21/25 09:00 DCW (Rec: 01/21/25 16:18 DCW [id number]) Special Tests Shoulder Special Tests Speed's Biceps Test Results Negative Grind Labrum Test Results Negative Painful Arc Test Results Positive R Passive ER Rotator Cuff Test Results Negative Lift-Off Rotator Cuff Test Results Positive R Mata Jean Claude Impingement Test Results Positive R Empty Can Test Results Positive R Drop Arm Rotator Cuff Test Results Negative Belly Press Test Results Negative Apprehension Test Test Results Negative PT-OP-M Strength Start: 01/21/25 15:37 Freq: Status: Active Protocol: Document 01/21/25 09:00 DCW (Rec: 01/21/25 16:18 DCW [id number]) Shoulder Strength Shoulder Manual Muscle Testing Right Flexion 5 Normal Abduction (C5) 4 Good External Rotation 5 Normal Internal Rotation 5 Normal Left Flexion 5 Normal Abduction (C5) 5 Normal External Rotation 5 Normal Internal Rotation 5 Normal PT-OP-Q Treatments Start: 01/21/25 15:37 Freq: Status: Active Protocol: Document 02/04/25 07:26 AB (Rec: 02/04/25 09:04 AB Laptop) Therapeutic Exercises Supine Exercises foam roller Supine Exercise Name 1. pec stretch HEP, 2. alt UE flexion HEP 3 mini band Reps/Minutes 1. 2 min 2. X 10 3 X 10 Prone Exercises I's, Y's, T's Prone Exercise Name I's, Y's, T's Side right Resistance 5# Comments over [place] ball Standing Exercises mini band Standing Exercise Name HEP Resistance level one band Reps/Minutes X 10 Comments back to wall for posture rhythmic stabilization Standing Exercise Name 1. statue of [place] with therabar 2 body blade Side left Reps/Minutes 1. one min blateral 2. X1 each UE Manual Therapy Treatment Consent Patient gave verbal consent for manual Yes treatment Soft Tissue Mobilization Pec, post cuff, UT/lev scap Body Location L Mobilization Type Cross-Friction,Rolling, Sustained Pressure Intensity/Depth Moderate Body Position Hooklying Comments and sidelying Joint Mobilizations L shoulder Joint GH and scapula Direction GH inf and AP X 10 X 2 scap into add PT-OP-T Assessment and Plan Start: 01/21/25 15:37 Freq: Status: Active Protocol: Document 02/04/25 07:26 AB (Rec: 02/04/25 09:04 AB Laptop) Physical Therapy Assessment Goals Three Impairment ROM limitations in right great toe impact gait Snf Goal (LTG) Pt to demonstrate improved great toe ROM to at least 45? extension at the MTP in order to help normalize gait pattern and reduce compensatory gait strategies. LTG Duration 03/23/25 Two Impairment Pt limited in J[employer]itsu class due to right shoulder pain Snf Goal (LTG) Pt to exhibit negative painful arc and empty can testing to demonstrate improved shoulder function and return to full participation in [employer]tsu class . LTG Duration 03/23/25 One Impairment Pt does not have an appropriate home exercise program Short Term Goal (STG) Pt to be independent and compliant with an appropriate HEP STG Duration 02/20/25 Assessment Summary Assessment AROM left shoulder flexion 154 deg end of session. Decreased popping with mini band vs UE flexion without mini band. Physical Therapy Plan Frequency and Duration Frequency of Treatment 1x/Week Plan of Care Start Date 01/21/25 Plan of Care End Date 03/23/25 Next Visit Focus/Plan Next Note Type Treatment Note Next Visit Plan Joint mobs, STM, strengthening , gait training
--- NOTE | 2025-02-11 08:40 | PT.OTN ---
Current Diagnoses Other chronic pain (02/11/25) Pain in right shoulder (02/11/25) Pain in right ankle and joints of right foot (02/11/25) Pain in right foot (02/11/25) Pain in left foot (02/11/25) Physical Therapy Treatment Note PT-OP-A Visit Information Start: 01/21/25 15:37 Freq: Status: Active Protocol: Document 02/11/25 07:22 AB (Rec: 02/11/25 08:40 AB Laptop) Out-Patient Physical Therapy Visit Information Visit Information Visit Type Treatment Note Visit Start Time 07:34 Visit Stop Time 08:18 Visit Number 4 Number of DIRECTOR VACCINE Visits 2 Evaluation Information Evaluation Date 01/21/25 PT-OP-B Current Condition Start: 01/21/25 15:37 Freq: Status: Active Protocol: Document 01/21/25 09:00 DCW (Rec: 01/21/25 16:18 DCW [id number]) Current Condition History of Current Condition Onset Date ~10 year history Current Complaints Right shoulder pain, bilateral foot pain History of Current Condition Pt is a 49 year old male presenting with a ten year history of right shoulder pain . Pt reports initial injury occurred weight-lifting while doing a press, hurt enough that he was unable to lift for six months, then slowly recovered, and then for the next ~8 years, didn't bother him. Starting one year ago, the pain returned with no apparent injury. 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 Notes it hurts in [employer] classes, with rotation of his right arm, and with overhead movement. Has been fairly stable over the past year, but hoping pt will help in improve. Pt also complaining of bilateral, R>L foot pain. 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 Has a history of cuboid displacements bilaterally. Earlier this year had was was deemed an inflammation in both his great toe MTP, but was not gout. Recently has had fairly extensive soft tissue bruising along his medial right ankle, thinks it occurred following a day of standing for ~8 hours on concrete. Prior Treatments and Tests Right ankle MRI: IMPRESSION: 1. 7 mm enhancing nodule in the subcutaneous fat of the medial ankle, resulting in erosion and mild marrow edema of the medial tibial plafond. Recommend further evaluation with tissue sampling. This lesion should be accessible by ultrasound approach. 2. Marrow edema about the 2nd and 5th tarsometatarsal joint, favored to represent moderate degenerative changes. Additional marrow edema of the proximal 2nd metatarsal diaphysis, partially visualized and is nonspecific. 3. 9 mm ganglion cyst medial to the 1st tarsometatarsal joint. per Angelica La M.D. on 02/10/2024 Right foot x-ray: IMPRESSION: Mild degeneration. per Yuan Mendoza M.D. on 2023 PT-OP-C Subjective Start: 01/21/25 15:37 Freq: Status: Active Protocol: Document 02/11/25 07:22 AB (Rec: 02/11/25 08:40 AB Laptop) OP-PT Subjective Patient Comments Patient Comments AROM R shoulder 125 start of session. Shelton reports ankle pain has increased gestures to TC and lateral R ankle. PT-OP-F Manual Assessment Start: 01/21/25 15:37 Freq: Status: Active Protocol: Document 01/21/25 09:00 DCW (Rec: 01/21/25 16:18 DCW [id number]) Manual Assessments Soft Tissue Assessment Soft Tissue Mobility Assessment Tenderness to palpation 2/4: pain with wincing along R subacromial space, R supraspinatus, R infraspinatus , R posterior tib tendon, R deltoid ligament Joint Mobility Assessment Joint Mobility Assessment Moderate passive and active restriction of right 1st MTP joint, severe restriction in 1st IP joint PT-OP-K Range of Motion Start: 01/21/25 15:37 Freq: Status: Active Protocol: Document 01/21/25 09:00 DCW (Rec: 01/21/25 16:18 DCW [id number]) Shoulder Goniometric Range of Motion Shoulder Right Active Shoulder ROM WFL Yes Testing Position Sitting Flexion 180 Abduction 180 External Rotation at 0 degrees Abduction 75 Left Active Shoulder ROM WFL Yes Testing Position Sitting Flexion 180 Abduction 180 External Rotation at 0 degrees Abduction 75 Toe Range of Motion Toe Right Great Toe Toe ROM WFL Yes MTP Flexion Active (degrees) 14 MTP Extension Active (degrees) 28 Comments 1st IP active flexion lacking 6? from neutral. IP extension to 10? PT-OP-L Special Tests Start: 01/21/25 15:37 Freq: Status: Active Protocol: Document 01/21/25 09:00 DCW (Rec: 01/21/25 16:18 DCW [id number]) Special Tests Shoulder Special Tests Speed's Biceps Test Results Negative Grind Labrum Test Results Negative Painful Arc Test Results Positive R Passive ER Rotator Cuff Test Results Negative Lift-Off Rotator Cuff Test Results Positive R Mata Jean Claude Impingement Test Results Positive R Empty Can Test Results Positive R Drop Arm Rotator Cuff Test Results Negative Belly Press Test Results Negative Apprehension Test Test Results Negative PT-OP-M Strength Start: 01/21/25 15:37 Freq: Status: Active Protocol: Document 01/21/25 09:00 DCW (Rec: 01/21/25 16:18 DCW [id number]) Shoulder Strength Shoulder Manual Muscle Testing Right Flexion 5 Normal Abduction (C5) 4 Good External Rotation 5 Normal Internal Rotation 5 Normal Left Flexion 5 Normal Abduction (C5) 5 Normal External Rotation 5 Normal Internal Rotation 5 Normal PT-OP-Q Treatments Start: 01/21/25 15:37 Freq: Status: Active Protocol: Document 02/11/25 07:22 AB (Rec: 02/11/25 08:40 AB Laptop) Therapeutic Exercises Prone Exercises AROM DF PF Side bilateral Reps/Minutes X10 with knees straight and knees bent Comments with cups in place, verbal and visual cues Standing Exercises DF and PF Standing Exercise Name with UE support Side bilateral Comments with cups in place standing calf stretches Standing Exercise Name gastroc and soleus Side bilateral Equipment Used HEP Reps/Minutes 60 sec X 2 each Comments verbal and visual Manual Therapy Treatment Consent Patient gave verbal consent for manual Yes treatment Soft Tissue Mobilization R foot and calf Mobilization Type Cross-Friction,Instrument Assisted,Rolling Intensity/Depth Moderate Body Position Prone Comments and hooklying Pec, post cuff, UT/lev scap Body Location R Mobilization Type Cross-Friction,Rolling, Sustained Pressure Intensity/Depth Moderate Body Position Hooklying Comments and sidelying Joint Mobilizations TC R ankle Joint MWM Direction ap Grade III Body Position 3X10 L shoulder Joint GH and scapula Direction GH inf and AP X 10 X 2 scap into add Shoulder Joint R GH Direction Inferior Grade III Body Position Supine PT-OP-T Assessment and Plan Start: 01/21/25 15:37 Freq: Status: Active Protocol: Document 02/11/25 07:22 AB (Rec: 02/11/25 08:40 AB Laptop) Physical Therapy Assessment Goals Three Impairment ROM limitations in right great toe impact gait Training And Development Manager Goal (LTG) Pt to demonstrate improved great toe ROM to at least 45? extension at the MTP in order to help normalize gait pattern and reduce compensatory gait strategies. LTG Duration 03/23/25 Two Impairment Pt limited in [employer]itsu class due to right shoulder pain Training And Development Manager Goal (LTG) Pt to exhibit negative painful arc and empty can testing to demonstrate improved shoulder function and return to full participation in [employer] class . LTG Duration 03/23/25 One Impairment Pt does not have an appropriate home exercise program Short Term Goal (STG) Pt to be independent and compliant with an appropriate HEP STG Duration 02/20/25 Assessment Summary Assessment Patient reports right ankle feels better during ambulation end of session. AROM R shoulder with no increase end of this session. Physical Therapy Plan Frequency and Duration Frequency of Treatment 1x/Week Plan of Care Start Date 01/21/25 Plan of Care End Date 03/23/25 Next Visit Focus/Plan Next Note Type Treatment Note Next Visit Plan Joint mobs, STM, strengthening , gait training
--- NOTE | 2025-02-18 09:50 | PT.OTN ---
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 Pt reports initial injury occurred weight-lifting while doing a press, hurt enough that he was unable to lift for six months, then slowly recovered, and then for the next ~8 years, didn't bother him. Starting one year ago, the pain returned with no apparent injury. 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 Notes it hurts in [employer] classes, with rotation of his right arm, and with overhead movement. Has been fairly stable over the past year, but hoping pt will help in improve. Pt also complaining of bilateral, R>L foot pain. 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 Has a history of cuboid displacements bilaterally. Earlier this year had was was deemed an inflammation in both his great toe MTP, but was not gout. Recently has had fairly extensive soft tissue bruising along his medial right ankle, thinks it occurred following a day of standing for ~8 hours on concrete. Prior Treatments and Tests Right ankle MRI: IMPRESSION: 1. 7 mm enhancing nodule in the subcutaneous fat of the medial ankle, resulting in erosion and mild marrow edema of the medial tibial plafond. Recommend further evaluation with tissue sampling. This lesion should be accessible by ultrasound approach. 2. Marrow edema about the 2nd and 5th tarsometatarsal joint, favored to represent moderate degenerative changes. Additional marrow edema of the proximal 2nd metatarsal diaphysis, partially visualized and is nonspecific. 3. 9 mm ganglion cyst medial to the 1st tarsometatarsal joint. per Angelica La M.D. on 02/10/2024 Right foot x-ray: IMPRESSION: Mild degeneration. per Yuan Mendoza M.D. on 2023 PT-OP-C Subjective Start: 01/21/25 15:37 Freq: Status: Active Protocol: Document 02/18/25 09:00 DCW (Rec: 02/18/25 09:50 DCW [id number]) OP-PT Subjective Patient Comments Patient Comments Pt notes he has been feeling better, especially the foot, was bale to go on a hike after his last visit, had a quicker recovery process. Notes his shoulder isn't clicking as much. PT-OP-F Manual Assessment Start: 01/21/25 15:37 Freq: Status: Active Protocol: Document 01/21/25 09:00 DCW (Rec: 01/21/25 16:18 DCW [id number]) Manual Assessments Soft Tissue Assessment Soft Tissue Mobility Assessment Tenderness to palpation 2/4: pain with wincing along R subacromial space, R supraspinatus, R infraspinatus , R posterior tib tendon, R deltoid ligament Joint Mobility Assessment Joint Mobility Assessment Moderate passive and active restriction of right 1st MTP joint, severe restriction in 1st IP joint PT-OP-K Range of Motion Start: 01/21/25 15:37 Freq: Status: Active Protocol: Document 01/21/25 09:00 DCW (Rec: 01/21/25 16:18 DCW [id number]) Shoulder Goniometric Range of Motion Shoulder Right Active Shoulder ROM WFL Yes Testing Position Sitting Flexion 180 Abduction 180 External Rotation at 0 degrees Abduction 75 Left Active Shoulder ROM WFL Yes Testing Position Sitting Flexion 180 Abduction 180 External Rotation at 0 degrees Abduction 75 Toe Range of Motion Toe Right Great Toe Toe ROM WFL Yes MTP Flexion Active (degrees) 14 MTP Extension Active (degrees) 28 Comments 1st IP active flexion lacking 6? from neutral. IP extension to 10? PT-OP-L Special Tests Start: 01/21/25 15:37 Freq: Status: Active Protocol: Document 01/21/25 09:00 DCW (Rec: 01/21/25 16:18 DCW [id number]) Special Tests Shoulder Special Tests Speed's Biceps Test Results Negative Grind Labrum Test Results Negative Painful Arc Test Results Positive R Passive ER Rotator Cuff Test Results Negative Lift-Off Rotator Cuff Test Results Positive R Mata Jean Claude Impingement Test Results Positive R Empty Can Test Results Positive R Drop Arm Rotator Cuff Test Results Negative Belly Press Test Results Negative Apprehension Test Test Results Negative PT-OP-M Strength Start: 01/21/25 15:37 Freq: Status: Active Protocol: Document 01/21/25 09:00 DCW (Rec: 01/21/25 16:18 DCW [id number]) Shoulder Strength Shoulder Manual Muscle Testing Right Flexion 5 Normal Abduction (C5) 4 Good External Rotation 5 Normal Internal Rotation 5 Normal Left Flexion 5 Normal Abduction (C5) 5 Normal External Rotation 5 Normal Internal Rotation 5 Normal PT-OP-Q Treatments Start: 01/21/25 15:37 Freq: Status: Active Protocol: Document 02/18/25 09:00 DCW (Rec: 02/18/25 09:50 DCW [id number]) Gym Equipment Therapeutic Ball Prone Walk-out Exercise Details Prone walk-out /c push-up Ball Size/Color Green - 65 cm Body Position Prone Therapeutic Exercises Standing Exercises Wall Clock Standing Exercise Name Wall clock Side bilateral Resistance Blue loop mini band Standing Exercise Name Wall slides /c abduction vs band Side bilateral Resistance Blue loop Other Exercises Body Blade Other Exercise Name Body Blade Side right Resistance medium black -> large black Comments Flexion, Abduction. ER Resisted UE ambulation Other Exercise Name Resisted UE ambulation Resistance Blue loop Equipment Used // bars Reps/Minutes 2 laps Manual Therapy Treatment Consent Patient gave verbal consent for manual Yes treatment Joint Mobilizations TC R ankle Joint MWM Direction ap Grade III Body Position 3X10 L shoulder Joint GH and scapula Direction GH inf and AP X 10 X 2 scap into add Great Toe Joint R Great Toe Grade III Body Position Sitting Comments MTP, IP PT-OP-T Assessment and Plan Start: 01/21/25 15:37 Freq: Status: Active Protocol: Document 02/18/25 09:00 DCW (Rec: 02/18/25 09:50 DCW [id number]) Physical Therapy Assessment Impairments Impairments Activity Tolerance,Functional Activities,Functional Mobility ,Pain,ROM,Soft Tissue Mobility ,Strength,Tone Goals Three Impairment ROM limitations in right great toe impact gait Jail Goal (LTG) Pt to demonstrate improved great toe ROM to at least 45? extension at the MTP in order to help normalize gait pattern and reduce compensatory gait strategies. 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 LTG Duration 03/23/25 One Impairment Pt does not have an appropriate home exercise program Short Term Goal (STG) Pt to be independent and compliant with an appropriate HEP STG Duration 02/20/25 Assessment Summary Assessment Pt felt it was a very good workout today, able to fully participate with no increased shoulder discomfort. Toe does appear to be moving better, pt noting much less limitations overall. Continue to focus on joint mobs, STM, strengthening , and stabilization of shoulder. Physical Therapy Plan Frequency and Duration Frequency of Treatment 1x/Week Plan of Care Start Date 01/21/25 Plan of Care End Date 03/23/25 Next Visit Focus/Plan Next Note Type Treatment Note Next Visit Plan Joint mobs, STM, strengthening , gait training
--- NOTE | 2025-02-25 08:36 | PT.OTN ---
Current Diagnoses Other chronic pain (02/25/25) Pain in right shoulder (02/25/25) Pain in right ankle and joints of right foot (02/25/25) Pain in right foot (02/25/25) Pain in left foot (02/25/25) Physical Therapy Treatment Note PT-OP-A Visit Information Start: 01/21/25 15:37 Freq: Status: Active Protocol: Document 02/25/25 07:26 BL (Rec: 02/25/25 08:34 BL Laptop) Out-Patient Physical Therapy Visit Information Visit Information Visit Type Treatment Note Visit Number 6 Number of SHEAR GRINDER OPERATOR HELPER Visits 0 PT-OP-B Current Condition Start: 01/21/25 15:37 Freq: Status: Active Protocol: Document 01/21/25 09:00 DCW (Rec: 01/21/25 16:18 DCW [id number]) Current Condition History of Current Condition Onset Date ~10 year history Current Complaints Right shoulder pain, bilateral foot pain History of Current Condition Pt is a 49 year old male presenting with a ten year history of right shoulder pain . Pt reports initial injury occurred weight-lifting while doing a press, hurt enough that he was unable to lift for six months, then slowly recovered, and then for the next ~8 years, didn't bother him. Starting one year ago, the pain returned with no apparent injury. 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 Notes it hurts in [employer] classes, with rotation of his right arm, and with overhead movement. Has been fairly stable over the past year, but hoping pt will help in improve. Pt also complaining of bilateral, R>L foot pain. 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 Has a history of cuboid displacements bilaterally. Earlier this year had was was deemed an inflammation in both his great toe MTP, but was not gout. Recently has had fairly extensive soft tissue bruising along his medial right ankle, thinks it occurred following a day of standing for ~8 hours on concrete. Prior Treatments and Tests Right ankle MRI: IMPRESSION: 1. 7 mm enhancing nodule in the subcutaneous fat of the medial ankle, resulting in erosion and mild marrow edema of the medial tibial plafond. Recommend further evaluation with tissue sampling. This lesion should be accessible by ultrasound approach. 2. Marrow edema about the 2nd and 5th tarsometatarsal joint, favored to represent moderate degenerative changes. Additional marrow edema of the proximal 2nd metatarsal diaphysis, partially visualized and is nonspecific. 3. 9 mm ganglion cyst medial to the 1st tarsometatarsal joint. per Angelica La M.D. on 02/10/2024 Right foot x-ray: IMPRESSION: Mild degeneration. per Yuan Mendoza M.D. on 2023 PT-OP-C Subjective Start: 01/21/25 15:37 Freq: Status: Active Protocol: Document 02/25/25 07:26 BL (Rec: 02/25/25 08:34 BL Laptop) OP-PT Subjective Patient Comments Patient Comments Pt reports to the clinic this date and reports shoulder is doing pretty well, states his left big toe was stepped on and is pretty sore, motion is preserved. PT-OP-F Manual Assessment Start: 01/21/25 15:37 Freq: Status: Active Protocol: Document 01/21/25 09:00 DCW (Rec: 01/21/25 16:18 DCW [id number]) Manual Assessments Soft Tissue Assessment Soft Tissue Mobility Assessment Tenderness to palpation 2/4: pain with wincing along R subacromial space, R supraspinatus, R infraspinatus , R posterior tib tendon, R deltoid ligament Joint Mobility Assessment Joint Mobility Assessment Moderate passive and active restriction of right 1st MTP joint, severe restriction in 1st IP joint PT-OP-K Range of Motion Start: 01/21/25 15:37 Freq: Status: Active Protocol: Document 01/21/25 09:00 DCW (Rec: 01/21/25 16:18 DCW [id number]) Shoulder Goniometric Range of Motion Shoulder Right Active Shoulder ROM WFL Yes Testing Position Sitting Flexion 180 Abduction 180 External Rotation at 0 degrees Abduction 75 Left Active Shoulder ROM WFL Yes Testing Position Sitting Flexion 180 Abduction 180 External Rotation at 0 degrees Abduction 75 Toe Range of Motion Toe Right Great Toe Toe ROM WFL Yes MTP Flexion Active (degrees) 14 MTP Extension Active (degrees) 28 Comments 1st IP active flexion lacking 6? from neutral. IP extension to 10? PT-OP-L Special Tests Start: 01/21/25 15:37 Freq: Status: Active Protocol: Document 01/21/25 09:00 DCW (Rec: 01/21/25 16:18 DCW [id number]) Special Tests Shoulder Special Tests Speed's Biceps Test Results Negative Grind Labrum Test Results Negative Painful Arc Test Results Positive R Passive ER Rotator Cuff Test Results Negative Lift-Off Rotator Cuff Test Results Positive R Mata Jean Claude Impingement Test Results Positive R Empty Can Test Results Positive R Drop Arm Rotator Cuff Test Results Negative Belly Press Test Results Negative Apprehension Test Test Results Negative PT-OP-M Strength Start: 01/21/25 15:37 Freq: Status: Active Protocol: Document 01/21/25 09:00 DCW (Rec: 01/21/25 16:18 DCW [id number]) Shoulder Strength Shoulder Manual Muscle Testing Right Flexion 5 Normal Abduction (C5) 4 Good External Rotation 5 Normal Internal Rotation 5 Normal Left Flexion 5 Normal Abduction (C5) 5 Normal External Rotation 5 Normal Internal Rotation 5 Normal PT-OP-Q Treatments Start: 01/21/25 15:37 Freq: Status: Active Protocol: Document 02/25/25 07:26 BL (Rec: 02/25/25 08:34 BL Laptop) Therapeutic Exercises Prone Exercises I's, Y's, T's Prone Exercise Name 2x10 5#, Prone 90/90 ER, sidely, ER Standing Exercises Wall Clock Standing Exercise Name wall clock Side bilateral Resistance blue loop Comments 2x10 standing calf stretches Standing Exercise Name gastroc and soleus active stretch off step Side right Comments R only due to L 1st digit pain , 2x10 Manual Therapy Treatment Soft Tissue Mobilization R foot and calf Mobilization Type Cross-Friction,Instrument Assisted,Rolling Intensity/Depth Moderate Body Position Supine PT-OP-T Assessment and Plan Start: 01/21/25 15:37 Freq: Status: Active Protocol: Document 02/25/25 07:26 BL (Rec: 02/25/25 08:34 BL Laptop) Physical Therapy Assessment Goals Three Impairment ROM limitations in right great toe impact gait Design Assembler Goal (LTG) Pt to demonstrate improved great toe ROM to at least 45? extension at the MTP in order to help normalize gait pattern and reduce compensatory gait strategies. 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 LTG Duration 03/23/25 One Impairment Pt does not have an appropriate home exercise program Short Term Goal (STG) Pt to be independent and compliant with an appropriate HEP STG Duration 02/20/25 Assessment Summary Assessment Pt continues to progress well in therapy this session, pt tolerates advancement in scapular stability strengthening, advanced HEP for home. Pt tolerates manual therapy to R medial calf and has improved symptoms following. Physical Therapy Plan Frequency and Duration Frequency of Treatment 1x/Week Plan of Care Start Date 01/21/25 Plan of Care End Date 03/23/25 Next Visit Focus/Plan Next Note Type Treatment Note Next Visit Plan Joint mobs, STM, strengthening , gait training
--- NOTE | 2025-03-04 10:42 | PT.OTN ---
Current Diagnoses Other chronic pain (03/04/25) Pain in right shoulder (03/04/25) Pain in right ankle and joints of right foot (03/04/25) Pain in right foot (03/04/25) Pain in left foot (03/04/25) Physical Therapy Treatment Note PT-OP-A Visit Information Start: 01/21/25 15:37 Freq: Status: Active Protocol: Document 03/04/25 09:50 DCW (Rec: 03/04/25 10:42 DCW [id number]) Out-Patient Physical Therapy Visit Information Visit Information Visit Start Time 09:50 Visit Stop Time 10:30 Visit Number 7 Number of ADVERTISING DIRECTOR Visits 0 Evaluation Information Evaluation Date 01/21/25 PT-OP-B Current Condition Start: 01/21/25 15:37 Freq: Status: Active Protocol: Document 01/21/25 09:00 DCW (Rec: 01/21/25 16:18 DCW [id number]) Current Condition History of Current Condition Onset Date ~10 year history Current Complaints Right shoulder pain, bilateral foot pain History of Current Condition Pt is a 49 year old male presenting with a ten year history of right shoulder pain . Pt reports initial injury occurred weight-lifting while doing a press, hurt enough that he was unable to lift for six months, then slowly recovered, and then for the next ~8 years, didn't bother him. Starting one year ago, the pain returned with no apparent injury. 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 Has been fairly stable over the past year, but hoping pt will help in improve. Pt also complaining of bilateral, R>L foot pain. 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 Has a history of cuboid displacements bilaterally. Earlier this year had was was deemed an inflammation in both his great toe MTP, but was not gout. Recently has had fairly extensive soft tissue bruising along his medial right ankle, thinks it occurred following a day of standing for ~8 hours on concrete. Prior Treatments and Tests Right ankle MRI: IMPRESSION: 1. 7 mm enhancing nodule in the subcutaneous fat of the medial ankle, resulting in erosion and mild marrow edema of the medial tibial plafond. Recommend further evaluation with tissue sampling. This lesion should be accessible by ultrasound approach. 2. Marrow edema about the 2nd and 5th tarsometatarsal joint, favored to represent moderate degenerative changes. Additional marrow edema of the proximal 2nd metatarsal diaphysis, partially visualized and is nonspecific. 3. 9 mm ganglion cyst medial to the 1st tarsometatarsal joint. per Angelica La M.D. on 02/10/2024 Right foot x-ray: IMPRESSION: Mild degeneration. per Yuan Mendoza M.D. on 2023 PT-OP-C Subjective Start: 01/21/25 15:37 Freq: Status: Active Protocol: Document 03/04/25 09:50 DCW (Rec: 03/04/25 10:42 DCW [id number]) OP-PT Subjective Patient Comments Patient Comments Pt notes his shoulder and toe are feeling pretty good, noticing consistent soreness in ankle after a week of activity. Does continue to exhibit stiffness and swelling in his left foot after having it stomped on 1.5 weeks ago. PT-OP-F Manual Assessment Start: 01/21/25 15:37 Freq: Status: Active Protocol: Document 01/21/25 09:00 DCW (Rec: 01/21/25 16:18 DCW [id number]) Manual Assessments Soft Tissue Assessment Soft Tissue Mobility Assessment Tenderness to palpation 2/4: pain with wincing along R subacromial space, R supraspinatus, R infraspinatus , R posterior tib tendon, R deltoid ligament Joint Mobility Assessment Joint Mobility Assessment Moderate passive and active restriction of right 1st MTP joint, severe restriction in 1st IP joint PT-OP-K Range of Motion Start: 01/21/25 15:37 Freq: Status: Active Protocol: Document 01/21/25 09:00 DCW (Rec: 01/21/25 16:18 DCW [id number]) Shoulder Goniometric Range of Motion Shoulder Right Active Shoulder ROM WFL Yes Testing Position Sitting Flexion 180 Abduction 180 External Rotation at 0 degrees Abduction 75 Left Active Shoulder ROM WFL Yes Testing Position Sitting Flexion 180 Abduction 180 External Rotation at 0 degrees Abduction 75 Toe Range of Motion Toe Right Great Toe Toe ROM WFL Yes MTP Flexion Active (degrees) 14 MTP Extension Active (degrees) 28 Comments 1st IP active flexion lacking 6? from neutral. IP extension to 10? PT-OP-L Special Tests Start: 01/21/25 15:37 Freq: Status: Active Protocol: Document 01/21/25 09:00 DCW (Rec: 01/21/25 16:18 DCW [id number]) Special Tests Shoulder Special Tests Speed's Biceps Test Results Negative Grind Labrum Test Results Negative Painful Arc Test Results Positive R Passive ER Rotator Cuff Test Results Negative Lift-Off Rotator Cuff Test Results Positive R Mata Jean Claude Impingement Test Results Positive R Empty Can Test Results Positive R Drop Arm Rotator Cuff Test Results Negative Belly Press Test Results Negative Apprehension Test Test Results Negative PT-OP-M Strength Start: 01/21/25 15:37 Freq: Status: Active Protocol: Document 01/21/25 09:00 DCW (Rec: 01/21/25 16:18 DCW [id number]) Shoulder Strength Shoulder Manual Muscle Testing Right Flexion 5 Normal Abduction (C5) 4 Good External Rotation 5 Normal Internal Rotation 5 Normal Left Flexion 5 Normal Abduction (C5) 5 Normal External Rotation 5 Normal Internal Rotation 5 Normal PT-OP-Q Treatments Start: 01/21/25 15:37 Freq: Status: Active Protocol: Document 03/04/25 09:50 DCW (Rec: 03/04/25 10:42 DCW [id number]) Therapeutic Exercises Standing Exercises UE D1/D2 Standing Exercise Name UE D1/D2 PNF Side bilateral Resistance Blue ball - 5.5# Wall Clock Standing Exercise Name wall clock Side bilateral Resistance Green loop Other Exercises Wall Push-up Other Exercise Name Push-up+ on wall Body Blade Other Exercise Name Body Blade Side right Resistance medium black -> large black Comments Flexion, Abduction. ER Manual Therapy Treatment Consent Patient gave verbal consent for manual Yes treatment Soft Tissue Mobilization R foot and calf Mobilization Type Cross-Friction,Instrument Assisted,Rolling Intensity/Depth Moderate Body Position Supine Joint Mobilizations TC R ankle Joint MWM Direction ap Grade III Body Position 3X10 Great Toe Joint R Great Toe Grade III Body Position Sitting Comments MTP, IP PT-OP-T Assessment and Plan Start: 01/21/25 15:37 Freq: Status: Active Protocol: Document 03/04/25 09:50 DCW (Rec: 03/04/25 10:42 DCW [id number]) Physical Therapy Assessment Impairments Impairments Activity Tolerance,Functional Activities,Functional Mobility ,Pain,ROM,Soft Tissue Mobility ,Strength,Tone Goals Three Impairment ROM limitations in right great toe impact gait Group Home Goal (LTG) Pt to demonstrate improved great toe ROM to at least 45? extension at the MTP in order to help normalize gait pattern and reduce compensatory gait strategies. LTG Duration 03/23/25 Two Impairment Pt limited in Jujitsu class due to right shoulder pain Group Home Goal (LTG) Pt to exhibit negative painful arc and empty can testing to demonstrate improved shoulder function and return to full participation in Jujitsu class . LTG Duration 03/23/25 One Impairment Pt does not have an appropriate home exercise program Short Term Goal (STG) Pt to be independent and compliant with an appropriate HEP STG Duration 02/20/25 Assessment Summary Assessment Pt still having problems with his left great toe after getting it stomped on, discussed getting imaging done . Pt shoulder showing good improvement, increasing pain- free ROM and minimal clicking/ crunching. Continue to work on shoulder and foot mobility. Physical Therapy Plan Frequency and Duration Frequency of Treatment 1x/Week Plan of Care Start Date 01/21/25 Plan of Care End Date 03/23/25 Next Visit Focus/Plan Next Note Type Treatment Note Next Visit Plan Joint mobs, STM, strengthening , gait training
--- NOTE | 2025-03-11 08:17 | PT.OTN ---
Current Diagnoses Other chronic pain (03/11/25) Pain in right shoulder (03/11/25) Pain in right ankle and joints of right foot (03/11/25) Pain in right foot (03/11/25) Pain in left foot (03/11/25) Physical Therapy Treatment Note PT-OP-A Visit Information Start: 01/21/25 15:37 Freq: Status: Active Protocol: Document 03/11/25 07:27 BL (Rec: 03/11/25 08:16 BL Laptop) Out-Patient Physical Therapy Visit Information Visit Information Visit Type Treatment Note Visit Start Time 07:30 Visit Stop Time 08:10 Visit Number 8 Number of GANG RIDER Visits 0 PT-OP-B Current Condition Start: 01/21/25 15:37 Freq: Status: Active Protocol: Document 01/21/25 09:00 DCW (Rec: 01/21/25 16:18 DCW [id number]) Current Condition History of Current Condition Onset Date ~10 year history Current Complaints Right shoulder pain, bilateral foot pain History of Current Pt is a 49 year old male presenting with a ten year Condition history of right shoulder pain. Pt reports initial injury occurred weight-lifting while doing a press, hurt enough that he was unable to lift for six months, then slowly recovered, and then for the next ~8 years, didn't bother him. Starting one year ago, the pain returned with no apparent injury. 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 Has been fairly stable over the past year, but hoping pt will help in improve. Pt also complaining of bilateral, R>L foot pain. 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 Has a history of cuboid displacements bilaterally. Earlier this year had was was deemed an inflammation in both his great toe MTP, but was not gout. Recently has had fairly extensive soft tissue bruising along his medial right ankle, thinks it occurred following a day of standing for ~8 hours on concrete. Prior Treatments and Right ankle MRI: IMPRESSION: 1. 7 mm enhancing nodule Tests in the subcutaneous fat of the medial ankle, resulting in erosion and mild marrow edema of the medial tibial plafond. Recommend further evaluation with tissue sampling. This lesion should be accessible by ultrasound approach. 2. Marrow edema about the 2nd and 5th tarsometatarsal joint, favored to represent moderate degenerative changes. Additional marrow edema of the proximal 2nd metatarsal diaphysis, partially visualized and is nonspecific. 3. 9 mm ganglion cyst medial to the 1st tarsometatarsal joint. per Angelica La M.D. on 02/10/2024 Right foot x-ray: IMPRESSION: Mild degeneration. per Yuan Mendoza M.D. on 08/10/2024 PT-OP-C Subjective Start: 01/21/25 15:37 Freq: Status: Active Protocol: Document 03/11/25 07:27 BL (Rec: 03/11/25 08:16 BL Laptop) OP-PT Subjective Patient Comments Patient Comments Pt presents to the clinic this date and reports he is doing well, states overall improved mobility in the R shoulder and shane ankle. Reports L ankle continues to be pretty sore but improving. Did wear his ankle brace on L LE due to increased running this week. PT-OP-F Manual Assessment Start: 01/21/25 15:37 Freq: Status: Active Protocol: Document 01/21/25 09:00 DCW (Rec: 01/21/25 16:18 DCW [id number]) Manual Assessments Soft Tissue Assessment Soft Tissue Mobility Tenderness to palpation 2/4: pain with wincing along R Assessment subacromial space, R supraspinatus, R infraspinatus, R posterior tib tendon, R deltoid ligament Joint Mobility Assessment Joint Mobility Moderate passive and active restriction of right 1st Assessment MTP joint, severe restriction in 1st IP joint PT-OP-K Range of Motion Start: 01/21/25 15:37 Freq: Status: Active Protocol: Document 01/21/25 09:00 DCW (Rec: 01/21/25 16:18 DCW [id number]) Shoulder Goniometric Range of Motion Shoulder Right Active Shoulder ROM WFL Yes Testing Position Sitting Flexion 180 Abduction 180 External Rotation at 75 0 degrees Abduction Left Active Shoulder ROM WFL Yes Testing Position Sitting Flexion 180 Abduction 180 External Rotation at 75 0 degrees Abduction Toe Range of Motion Toe Right Great Toe Toe ROM WFL Yes MTP Flexion Active ( 14 degrees) MTP Extension Active 28 (degrees) Comments 1st IP active flexion lacking 6? from neutral. IP extension to 10? PT-OP-L Special Tests Start: 01/21/25 15:37 Freq: Status: Active Protocol: Document 01/21/25 09:00 DCW (Rec: 01/21/25 16:18 DCW [id number]) Special Tests Shoulder Special Tests Speed's Biceps Test Results Negative Grind Labrum Test Results Negative Painful Arc Test Results Positive R Passive ER Rotator Cuff Test Results Negative Lift-Off Rotator Cuff Test Results Positive R Mata Jean Claude Impingement Test Results Positive R Empty Can Test Results Positive R Drop Arm Rotator Cuff Test Results Negative Belly Press Test Results Negative Apprehension Test Test Results Negative PT-OP-M Strength Start: 01/21/25 15:37 Freq: Status: Active Protocol: Document 01/21/25 09:00 DCW (Rec: 01/21/25 16:18 DCW [id number]) Shoulder Strength Shoulder Manual Muscle Testing Right Flexion 5 Normal Abduction (C5) 4 Good External Rotation 5 Normal Internal Rotation 5 Normal Left Flexion 5 Normal Abduction (C5) 5 Normal External Rotation 5 Normal Internal Rotation 5 Normal PT-OP-Q Treatments Start: 01/21/25 15:37 Freq: Status: Active Protocol: Document 03/11/25 07:27 BL (Rec: 03/11/25 08:16 BL Laptop) Therapeutic Exercises Prone Exercises I's, Y's, T's Prone Exercise Name 2x10 5#, Prone 90/90 ER, sidely, ER, T, Y, Is Standing Exercises Body Blade Standing Exercise ER/IR, Abd/Add, PNF D2 flex/ext Name Resistance Large blk, classic blk UE D1/D2 Standing Exercise UE D1/D2 PNF Name Side bilateral Resistance Blue ball - 5.5# Wall Clock Standing Exercise wall clock Name Side bilateral Resistance Green loop Manual Therapy Treatment Soft Tissue Mobilization R foot and calf Mobilization Type Cross-Friction,Instrument Assisted,Rolling Intensity/Depth Moderate Body Position Supine PT-OP-T Assessment and Plan Start: 01/21/25 15:37 Freq: Status: Active Protocol: Document 03/11/25 07:27 BL (Rec: 03/11/25 08:16 BL Laptop) Physical Therapy Assessment Goals Three Impairment ROM limitations in right great toe impact gait Assisted Goal (LTG) Pt to demonstrate improved great toe ROM to at least 45 ? extension at the MTP in order to help normalize gait pattern and reduce compensatory gait strategies. LTG Duration 03/23/25 Two Impairment Pt limited in Jujitsu class due to right shoulder pain Assisted Goal (LTG) Pt to exhibit negative painful arc and empty can testing to demonstrate improved shoulder function and return to full participation in [employer] class. LTG Duration 03/23/25 One Impairment Pt does not have an appropriate home exercise program Short Term Goal (STG Pt to be independent and compliant with an appropriate ) HEP STG Duration 02/20/25 Assessment Summary Assessment Pt progressing well, continues to have mild impingement with overhead activities. L ankle improved following mobilizations. Continue to focus on ROM and scapular strengthening. Physical Therapy Plan Frequency and Duration Frequency of 1x/Week Treatment Plan of Care Start 01/21/25 Date Plan of Care End 03/23/25 Date Next Visit Focus/Plan Next Note Type Treatment Note Next Visit Plan Joint mobs, STM, strengthening, gait training
--- NOTE | 2025-03-18 08:20 | PT.OTN ---
Current Diagnoses Other chronic pain (03/18/25) Pain in right shoulder (03/18/25) Pain in right ankle and joints of right foot (03/18/25) Pain in right foot (03/18/25) Pain in left foot (03/18/25) Physical Therapy Treatment Note PT-OP-A Visit Information Start: 01/21/25 15:37 Freq: Status: Active Protocol: Document 03/18/25 07:29 BL (Rec: 03/18/25 08:20 BL Laptop) Out-Patient Physical Therapy Visit Information Visit Information Visit Type Treatment Note Visit Start Time 07:40 Visit Stop Time 08:10 Visit Number 9 Number of PIGGYBACK CLERK Visits 0 PT-OP-B Current Condition Start: 01/21/25 15:37 Freq: Status: Active Protocol: Document 01/21/25 09:00 DCW (Rec: 01/21/25 16:18 DCW [id number]) Current Condition History of Current Condition Onset Date ~10 year history Current Complaints Right shoulder pain, bilateral foot pain History of Current Pt is a 49 year old male presenting with a ten year Condition history of right shoulder pain. Pt reports initial injury occurred weight-lifting while doing a press, hurt enough that he was unable to lift for six months, then slowly recovered, and then for the next ~8 years, didn't bother him. Starting one year ago, the pain returned with no apparent injury. 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 Has been fairly stable over the past year, but hoping pt will help in improve. Pt also complaining of bilateral, R>L foot pain. 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 Has a history of cuboid displacements bilaterally. Earlier this year had was was deemed an inflammation in both his great toe MTP, but was not gout. Recently has had fairly extensive soft tissue bruising along his medial right ankle, thinks it occurred following a day of standing for ~8 hours on concrete. Prior Treatments and Right ankle MRI: IMPRESSION: 1. 7 mm enhancing nodule Tests in the subcutaneous fat of the medial ankle, resulting in erosion and mild marrow edema of the medial tibial plafond. Recommend further evaluation with tissue sampling. This lesion should be accessible by ultrasound approach. 2. Marrow edema about the 2nd and 5th tarsometatarsal joint, favored to represent moderate degenerative changes. Additional marrow edema of the proximal 2nd metatarsal diaphysis, partially visualized and is nonspecific. 3. 9 mm ganglion cyst medial to the 1st tarsometatarsal joint. per Angelica La M.D. on 02/10/2024 Right foot x-ray: IMPRESSION: Mild degeneration. per Yuan Mendoza M.D. on 08/10/2024 PT-OP-C Subjective Start: 01/21/25 15:37 Freq: Status: Active Protocol: Document 03/18/25 07:29 BL (Rec: 03/18/25 08:20 BL Laptop) OP-PT Subjective Patient Comments Patient Comments Pt presents to the clinic this date and reports he is doing well, states overall improved mobility in the R shoulder with less pain, pt states he went on a hike this past weekend and his ankle became pretty swollen. PT-OP-F Manual Assessment Start: 01/21/25 15:37 Freq: Status: Active Protocol: Document 01/21/25 09:00 DCW (Rec: 01/21/25 16:18 DCW [id number]) Manual Assessments Soft Tissue Assessment Soft Tissue Mobility Tenderness to palpation 2/4: pain with wincing along R Assessment subacromial space, R supraspinatus, R infraspinatus, R posterior tib tendon, R deltoid ligament Joint Mobility Assessment Joint Mobility Moderate passive and active restriction of right 1st Assessment MTP joint, severe restriction in 1st IP joint PT-OP-K Range of Motion Start: 01/21/25 15:37 Freq: Status: Active Protocol: Document 01/21/25 09:00 DCW (Rec: 01/21/25 16:18 DCW [id number]) Shoulder Goniometric Range of Motion Shoulder Right Active Shoulder ROM WFL Yes Testing Position Sitting Flexion 180 Abduction 180 External Rotation at 75 0 degrees Abduction Left Active Shoulder ROM WFL Yes Testing Position Sitting Flexion 180 Abduction 180 External Rotation at 75 0 degrees Abduction Toe Range of Motion Toe Right Great Toe Toe ROM WFL Yes MTP Flexion Active ( 14 degrees) MTP Extension Active 28 (degrees) Comments 1st IP active flexion lacking 6? from neutral. IP extension to 10? PT-OP-L Special Tests Start: 01/21/25 15:37 Freq: Status: Active Protocol: Document 01/21/25 09:00 DCW (Rec: 01/21/25 16:18 DCW [id number]) Special Tests Shoulder Special Tests Speed's Biceps Test Results Negative Grind Labrum Test Results Negative Painful Arc Test Results Positive R Passive ER Rotator Cuff Test Results Negative Lift-Off Rotator Cuff Test Results Positive R Mata Jean Claude Impingement Test Results Positive R Empty Can Test Results Positive R Drop Arm Rotator Cuff Test Results Negative Belly Press Test Results Negative Apprehension Test Test Results Negative PT-OP-M Strength Start: 01/21/25 15:37 Freq: Status: Active Protocol: Document 01/21/25 09:00 DCW (Rec: 01/21/25 16:18 DCW [id number]) Shoulder Strength Shoulder Manual Muscle Testing Right Flexion 5 Normal Abduction (C5) 4 Good External Rotation 5 Normal Internal Rotation 5 Normal Left Flexion 5 Normal Abduction (C5) 5 Normal External Rotation 5 Normal Internal Rotation 5 Normal PT-OP-Q Treatments Start: 01/21/25 15:37 Freq: Status: Active Protocol: Document 03/18/25 07:29 BL (Rec: 03/18/25 08:20 BL Laptop) Therapeutic Exercises Prone Exercises I's, Y's, T's Prone Exercise Name 2x10 5#, Prone 90/90 ER, sidely, ER, T, Y, Is Standing Exercises Body Blade Standing Exercise PNF D2 flex/ext Name Resistance Large blk Wall Clock Standing Exercise wall clock (reviewed) Name Side bilateral Resistance Green loop Other Exercises Wall Push-up Other Exercise Name Inclined push up+ Manual Therapy Treatment Soft Tissue Mobilization R foot and calf Mobilization Type Cross-Friction,Instrument Assisted,Rolling Intensity/Depth Moderate Body Position Supine Comments Grade 2 ankle mobilization with improved mobility following. PT-OP-T Assessment and Plan Start: 01/21/25 15:37 Freq: Status: Active Protocol: Document 03/18/25 07:29 BL (Rec: 03/18/25 08:20 BL Laptop) Physical Therapy Assessment Goals Three Impairment ROM limitations in right great toe impact gait Byproducts Operator Goal (LTG) Pt to demonstrate improved great toe ROM to at least 45 ? extension at the MTP in order to help normalize gait pattern and reduce compensatory gait strategies. LTG Duration 03/23/25 Two Impairment Pt limited in Jujitsu class due to right shoulder pain Byproducts Operator Goal (LTG) Pt to exhibit negative painful arc and empty can testing to demonstrate improved shoulder function and return to full participation in Jujitsu class. LTG Duration 03/23/25 One Impairment Pt does not have an appropriate home exercise program Short Term Goal (STG Pt to be independent and compliant with an appropriate ) HEP STG Duration 02/20/25 Assessment Summary Assessment Pt progressing well, continues to have mild impingement with overhead activities. R ankle mobilization demo improved mobility, reviewed use of RICE for improved healing. Continue to focus on ROM and scapular strengthening. Physical Therapy Plan Frequency and Duration Frequency of 1x/Week Treatment Plan of Care Start 01/21/25 Date Plan of Care End 03/23/25 Date Next Visit Focus/Plan Next Note Type Treatment Note Next Visit Plan Joint mobs, STM, strengthening, gait training
--- NOTE | 2025-03-25 11:47 | PT.OTN ---
Addendum entered and electronically signed by Alexy Sharp, PT 03/25/25 13:03: PT direct supervision and direction to student PT Gavin Guzman throughout session Original Note: Current Diagnoses Other chronic pain (03/25/25) Pain in right shoulder (03/25/25) Pain in right ankle and joints of right foot (03/25/25) Pain in right foot (03/25/25) Pain in left foot (03/25/25) Physical Therapy Treatment Note PT-OP-A Visit Information Start: 01/21/25 15:37 Freq: Status: Active Protocol: Document 03/25/25 09:00 LFG (Rec: 03/25/25 10:10 LFG [id number]) Out-Patient Physical Therapy Visit Information Visit Information Visit Type Progress Note Visit Start Time 09:00 Visit Stop Time 09:43 Visit Number 10 Number of VEHICLE FARE COLLECTOR Visits 0 PT-OP-B Current Condition Start: 01/21/25 15:37 Freq: Status: Active Protocol: Document 01/21/25 09:00 DCW (Rec: 01/21/25 16:18 DCW [id number]) Current Condition History of Current Condition Onset Date ~10 year history Current Complaints Right shoulder pain, bilateral foot pain History of Current Pt is a 49 year old male presenting with a ten year Condition history of right shoulder pain. Pt reports initial injury occurred weight-lifting while doing a press, hurt enough that he was unable to lift for six months, then slowly recovered, and then for the next ~8 years, didn't bother him. Starting one year ago, the pain returned with no apparent injury. 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 Notes it hurts in [employer] classes, with rotation of his right arm, and with overhead movement. Has been fairly stable over the past year, but hoping pt will help in improve. Pt also complaining of bilateral, R>L foot pain. 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 Has a history of cuboid displacements bilaterally. Earlier this year had was was deemed an inflammation in both his great toe MTP, but was not gout. Recently has had fairly extensive soft tissue bruising along his medial right ankle, thinks it occurred following a day of standing for ~8 hours on concrete. Prior Treatments and Right ankle MRI: IMPRESSION: 1. 7 mm enhancing nodule Tests in the subcutaneous fat of the medial ankle, resulting in erosion and mild marrow edema of the medial tibial plafond. Recommend further evaluation with tissue sampling. This lesion should be accessible by ultrasound approach. 2. Marrow edema about the 2nd and 5th tarsometatarsal joint, favored to represent moderate degenerative changes. Additional marrow edema of the proximal 2nd metatarsal diaphysis, partially visualized and is nonspecific. 3. 9 mm ganglion cyst medial to the 1st tarsometatarsal joint. per Angelica La M.D. on 02/10/2024 Right foot x-ray: IMPRESSION: Mild degeneration. per Yuan Mendoza M.D. on 08/10/2024 PT-OP-C Subjective Start: 01/21/25 15:37 Freq: Status: Active Protocol: Document 03/25/25 09:00 LFG (Rec: 03/25/25 10:10 LFG [id number]) OP-PT Subjective Patient Comments Patient Comments Pt reports doing well today. Has a few more weeks left of [employer] and about 5 weeks left in the [employer]. PT-OP-F Manual Assessment Start: 01/21/25 15:37 Freq: Status: Active Protocol: Document 01/21/25 09:00 DCW (Rec: 01/21/25 16:18 DCW [id number]) Manual Assessments Soft Tissue Assessment Soft Tissue Mobility Tenderness to palpation 2/4: pain with wincing along R Assessment subacromial space, R supraspinatus, R infraspinatus, R posterior tib tendon, R deltoid ligament Joint Mobility Assessment Joint Mobility Moderate passive and active restriction of right 1st Assessment MTP joint, severe restriction in 1st IP joint PT-OP-K Range of Motion Start: 01/21/25 15:37 Freq: Status: Active Protocol: Document 03/25/25 09:00 LFG (Rec: 03/25/25 09:55 LFG [id number]) Toe Range of Motion Toe Right Great Toe Toe ROM WFL Yes MTP Flexion Active ( 24 degrees) MTP Extension Active 40 (degrees) Comments st IP active flexion lacking 6? from neutral. IP extension to 10? PT-OP-L Special Tests Start: 01/21/25 15:37 Freq: Status: Active Protocol: Document 03/25/25 09:00 LFG (Rec: 03/25/25 09:55 LFG [id number]) Special Tests Shoulder Special Tests Painful Arc Test Results Positive R Lift-Off Rotator Cuff Test Results Negative [place] Impingement Test Results Mild Positive R Empty Can Test Results Positive R PT-OP-M Strength Start: 01/21/25 15:37 Freq: Status: Active Protocol: Document 01/21/25 09:00 DCW (Rec: 01/21/25 16:18 DCW [id number]) Shoulder Strength Shoulder Manual Muscle Testing Right Flexion 5 Normal Abduction (C5) 4 Good External Rotation 5 Normal Internal Rotation 5 Normal Left Flexion 5 Normal Abduction (C5) 5 Normal External Rotation 5 Normal Internal Rotation 5 Normal PT-OP-Q Treatments Start: 01/21/25 15:37 Freq: Status: Active Protocol: Document 03/25/25 09:00 LFG (Rec: 03/25/25 10:10 LFG [id number]) Therapeutic Exercises Supine Exercises Foam roller stretches Supine Exercise Name snow angels, open/close book Equipment Used foam roller Chest press Supine Exercise Name Chest press - w/ band around elbows Side bilateral Resistance L2, dark green DB Equipment Used flat mat table Horizontal abduction Supine Exercise Name band pull aparts Side bilateral Resistance L2 Comments good target tissue recruitment, cues for palms facing eachother Serratus Punch Supine Exercise Name Serratus Punch Side bilateral Resistance dark green DB Comments cues to slow down ecc Prone Exercises I's, Y's, T's Prone Exercise Name IYT Side bilateral Equipment Used on red ball Comments cues to bring shoulders down and limit ROM Sidelying Exercises Shoulder ER Sidelying Exercise ER Name Side right Resistance 3# Reps/Minutes 2x15 PT-OP-T Assessment and Plan Start: 01/21/25 15:37 Freq: Status: Active Protocol: Document 03/25/25 09:00 LFG (Rec: 03/25/25 10:10 LFG [id number]) Physical Therapy Assessment Impairments Impairments Activity Tolerance,Functional Activities,Functional Mobility,Pain,ROM,Soft Tissue Mobility,Strength,Tone Goals Three Impairment ROM limitations in right great toe impact gait Puddler Helper Goal (LTG) Pt to demonstrate improved great toe ROM to at least 45 ? extension at the MTP in order to help normalize gait pattern and reduce compensatory gait strategies. Pt demonstrated improved great toe ROM today with 40 deg of extension at the MTP joint - 6/20/25 LTG Duration 05/06/25 Two Impairment Pt limited in Jujitsu class due to right shoulder pain Puddler Helper Goal (LTG) Pt to exhibit negative painful arc and empty can testing to demonstrate improved shoulder function and return to full participation in [employer] class. LTG Duration 05/06/25 One Impairment Pt does not have an appropriate home exercise program Short Term Goal (STG Pt to be independent and compliant with an appropriate ) HEP Pt has a few exercises in his current HEP but still progressing 03/25/25 STG Duration 04/15/25 Assessment Summary Assessment Pt is progressing well overall demonstrating a now negative lift-off rotator cuff test, mild positive vaca-candis impingement test, and increased ROM in MTP extension of the great toe. Although shoulder has significantly increased pt reported similar symptoms of popping in the shoulder during todays session but decreased with cueing. Also states that overall the popping has decreased in his daily life. R foot no longer seems to be limiting his daily function. Pt will likely benefit from a continued focus on ROM, scapular strengthening, and STM. Physical Therapy Plan Frequency and Duration Frequency of 1x/Week Treatment Duration of 6 treatment (weeks) Plan of Care Start 03/25/25 Date Plan of Care End 05/06/25 Date Next Visit Focus/Plan Next Note Type Treatment Note Next Visit Plan Joint mobs, STM, strengthening, gait training
--- NOTE | 2025-03-25 11:48 | PT.OPPOC ---
Addendum entered and electronically signed by Alexy Sharp, PT 03/25/25 13:03: PT direct supervision and direction to student PT Gavin Guzman throughout session Original Note: Physical, Occupational & Speech Therapy At [facility] Current Diagnoses Other chronic pain (03/25/25) Pain in right shoulder (03/25/25) Pain in right ankle and joints of right foot (03/25/25) Pain in right foot (03/25/25) Pain in left foot (03/25/25) Visit Care Team Role Provider Type Tremayne Schultz MD Attending Provider Physician Family Provider Primary Care Provider Referring Provider Specialty: Family Practice Obstetrics Address: [address] [place] [address], [id number] Email: [email or web address] Plan Of Care PT-OP-B Current Condition Start: 01/21/25 15:37 Freq: Status: Active Protocol: Document 01/21/25 09:00 DCW (Rec: 01/21/25 16:18 DCW [id number]) Current Condition History of Current Condition Onset Date ~10 year history Current Complaints Right shoulder pain, bilateral foot pain History of Current Pt is a 49 year old male presenting with a ten year Condition history of right shoulder pain. Pt reports initial injury occurred weight-lifting while doing a press, hurt enough that he was unable to lift for six months, then slowly recovered, and then for the next ~8 years, didn't bother him. Starting one year ago, the pain returned with no apparent injury. 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 Has been fairly stable over the past year, but hoping pt will help in improve. Pt also complaining of bilateral, R>L foot pain. 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 Has a history of cuboid displacements bilaterally. Earlier this year had was was deemed an inflammation in both his great toe MTP, but was not gout. Recently has had fairly extensive soft tissue bruising along his medial right ankle, thinks it occurred following a day of standing for ~8 hours on concrete. Prior Treatments and Right ankle MRI: IMPRESSION: 1. 7 mm enhancing nodule Tests in the subcutaneous fat of the medial ankle, resulting in erosion and mild marrow edema of the medial tibial plafond. Recommend further evaluation with tissue sampling. This lesion should be accessible by ultrasound approach. 2. Marrow edema about the 2nd and 5th tarsometatarsal joint, favored to represent moderate degenerative changes. Additional marrow edema of the proximal 2nd metatarsal diaphysis, partially visualized and is nonspecific. 3. 9 mm ganglion cyst medial to the 1st tarsometatarsal joint. per Angelica La M.D. on 02/10/2024 Right foot x-ray: IMPRESSION: Mild degeneration. per Yuan Mendoza M.D. on 08/10/2024 PT-OP-T Assessment and Plan Start: 01/21/25 15:37 Freq: Status: Active Protocol: Document 03/25/25 09:00 LF (Rec: 03/25/25 10:10 LFG [id number]) Physical Therapy Assessment Impairments Impairments Activity Tolerance,Functional Activities,Functional Mobility,Pain,ROM,Soft Tissue Mobility,Strength,Tone Goals Three Impairment ROM limitations in right great toe impact gait Retirement Goal (LTG) Pt to demonstrate improved great toe ROM to at least 45 ? extension at the MTP in order to help normalize gait pattern and reduce compensatory gait strategies. Pt demonstrated improved great toe ROM today with 40 deg of extension at the MTP joint - 03/25/25 LTG Duration 05/06/25 Two Impairment Pt limited in Jujitsu class due to right shoulder pain Hospice Fellow Goal (LTG) Pt to exhibit negative painful arc and empty can testing to demonstrate improved shoulder function and return to full participation in Jujitsu class. LTG Duration 05/06/25 One Impairment Pt does not have an appropriate home exercise program Short Term Goal (STG Pt to be independent and compliant with an appropriate ) HEP Pt has a few exercises in his current HEP but still progressing 03/25/25 STG Duration 04/15/25 Assessment Summary Assessment Pt is progressing well overall demonstrating a now negative lift-off rotator cuff test, mild positive vaca-candis impingement test, and increased ROM in MTP extension of the great toe. Although shoulder has significantly increased pt reported similar symptoms of popping in the shoulder during todays session but decreased with cueing. Also states that overall the popping has decreased in his daily life. R foot no longer seems to be limiting his daily function. Pt will likely benefit from a continued focus on ROM, scapular strengthening, and STM. Physical Therapy Plan Frequency and Duration Frequency of 1x/Week Treatment Duration of 6 treatment (weeks) Plan of Care Start 03/25/25 Date Plan of Care End 05/06/25 Date Next Visit Focus/Plan Next Note Type Treatment Note Next Visit Plan Joint mobs, STM, strengthening, gait training Plan of Care Dates Plan of Care Start Date 03/25/25 Plan of Care End Date 05/06/25 Electronically Signed by: Gavin Plaza, PT 03/25/25 4734 If you are in agreement with this Plan of Care, please return a signed and dated copy. I have reviewed this Plan of Care and certify that the skilled therapy services above are required to meet the patient?s needs. Physician Signature Date Printed Name and Credentials Clinical Instructor Signature Printed Name and Credentials
--- NOTE | 2025-04-01 08:22 | PT.OTN ---
Current Diagnoses Other chronic pain (04/01/25) Pain in right shoulder (04/01/25) Pain in right ankle and joints of right foot (04/01/25) Pain in right foot (04/01/25) Pain in left foot (04/01/25) Physical Therapy Treatment Note PT-OP-A Visit Information Start: 01/21/25 15:37 Freq: Status: Active Protocol: Document 04/01/25 07:30 BL (Rec: 04/01/25 08:22 BL Laptop) Out-Patient Physical Therapy Visit Information Visit Information Visit Type Treatment Note Visit Start Time 07:30 Visit Stop Time 08:10 Visit Number 10 Number of HISTOLOGIC AIDE Visits 0 PT-OP-B Current Condition Start: 01/21/25 15:37 Freq: Status: Active Protocol: Document 01/21/25 09:00 DCW (Rec: 01/21/25 16:18 DCW [id number]) Current Condition History of Current Condition Onset Date ~10 year history Current Complaints Right shoulder pain, bilateral foot pain History of Current Pt is a 49 year old male presenting with a ten year Condition history of right shoulder pain. Pt reports initial injury occurred weight-lifting while doing a press, hurt enough that he was unable to lift for six months, then slowly recovered, and then for the next ~8 years, didn't bother him. Starting one year ago, the pain returned with no apparent injury. 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 Has been fairly stable over the past year, but hoping pt will help in improve. Pt also complaining of bilateral, R>L foot pain. 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 Has a history of cuboid displacements bilaterally. Earlier this year had was was deemed an inflammation in both his great toe MTP, but was not gout. Recently has had fairly extensive soft tissue bruising along his medial right ankle, thinks it occurred following a day of standing for ~8 hours on concrete. Prior Treatments and Right ankle MRI: IMPRESSION: 1. 7 mm enhancing nodule Tests in the subcutaneous fat of the medial ankle, resulting in erosion and mild marrow edema of the medial tibial plafond. Recommend further evaluation with tissue sampling. This lesion should be accessible by ultrasound approach. 2. Marrow edema about the 2nd and 5th tarsometatarsal joint, favored to represent moderate degenerative changes. Additional marrow edema of the proximal 2nd metatarsal diaphysis, partially visualized and is nonspecific. 3. 9 mm ganglion cyst medial to the 1st tarsometatarsal joint. per Angelica La M.D. on 02/10/2024 Right foot x-ray: IMPRESSION: Mild degeneration. per Yuan Mendoza M.D. on 08/10/2024 PT-OP-C Subjective Start: 01/21/25 15:37 Freq: Status: Active Protocol: Document 04/01/25 07:30 BL (Rec: 04/01/25 08:22 BL Laptop) OP-PT Subjective Patient Comments Patient Comments Pt presents to the clinic this date and reports he is doing well, states overall improved symptoms, states Jiujutsu final was yesterday and he was able to complete all the moves he needed to PT-OP-F Manual Assessment Start: 01/21/25 15:37 Freq: Status: Active Protocol: Document 01/21/25 09:00 DCW (Rec: 01/21/25 16:18 DCW [id number]) Manual Assessments Soft Tissue Assessment Soft Tissue Mobility Tenderness to palpation 2/4: pain with wincing along R Assessment subacromial space, R supraspinatus, R infraspinatus, R posterior tib tendon, R deltoid ligament Joint Mobility Assessment Joint Mobility Moderate passive and active restriction of right 1st Assessment MTP joint, severe restriction in 1st IP joint PT-OP-K Range of Motion Start: 01/21/25 15:37 Freq: Status: Active Protocol: Document 03/25/25 09:00 LFG (Rec: 03/25/25 09:55 LFG [id number]) Toe Range of Motion Toe Right Great Toe Toe ROM WFL Yes MTP Flexion Active ( 24 degrees) MTP Extension Active 40 (degrees) Comments st IP active flexion lacking 6? from neutral. IP extension to 10? PT-OP-L Special Tests Start: 01/21/25 15:37 Freq: Status: Active Protocol: Document 03/25/25 09:00 LFG (Rec: 03/25/25 09:55 LFG [id number]) Special Tests Shoulder Special Tests Painful Arc Test Results Positive R Lift-Off Rotator Cuff Test Results Negative Mata Jean Claude Impingement Test Results Mild Positive R Empty Can Test Results Positive R PT-OP-M Strength Start: 01/21/25 15:37 Freq: Status: Active Protocol: Document 01/21/25 09:00 DCW (Rec: 01/21/25 16:18 DCW [id number]) Shoulder Strength Shoulder Manual Muscle Testing Right Flexion 5 Normal Abduction (C5) 4 Good External Rotation 5 Normal Internal Rotation 5 Normal Left Flexion 5 Normal Abduction (C5) 5 Normal External Rotation 5 Normal Internal Rotation 5 Normal PT-OP-Q Treatments Start: 01/21/25 15:37 Freq: Status: Active Protocol: Document 04/01/25 07:30 BL (Rec: 04/01/25 08:22 BL Laptop) Therapeutic Exercises Supine Exercises Foam roller stretches Supine Exercise Name snow angels, open/close book (reviewed) Equipment Used foam roller Prone Exercises I's, Y's, T's Prone Exercise Name IYT (reviewed) Side bilateral Equipment Used on red ball Comments cues to bring shoulders down and limit ROM Other Exercises Wall Push-up Other Exercise Name dynamic heel raises, wobble board, bosu squats Manual Therapy Treatment Soft Tissue Mobilization R foot and calf Body Location L 1st MCP mobs R talocrural mob Comments Improved mobility following PT-OP-T Assessment and Plan Start: 01/21/25 15:37 Freq: Status: Active Protocol: Document 04/01/25 07:30 BL (Rec: 04/01/25 08:22 BL Laptop) Physical Therapy Assessment Goals Three Impairment ROM limitations in right great toe impact gait Shelter Goal (LTG) Pt to demonstrate improved great toe ROM to at least 45 ? extension at the MTP in order to help normalize gait pattern and reduce compensatory gait strategies. Pt demonstrated improved great toe ROM today with 40 deg of extension at the MTP joint - 03/25/25 LTG Duration 05/06/25 Two Impairment Pt limited in Jujitsu class due to right shoulder pain Shelter Goal (LTG) Pt to exhibit negative painful arc and empty can testing to demonstrate improved shoulder function and return to full participation in Jujitsu class. LTG Duration 05/06/25 One Impairment Pt does not have an appropriate home exercise program Short Term Goal (STG Pt to be independent and compliant with an appropriate ) HEP Pt has a few exercises in his current HEP but still progressing 03/25/25 STG Duration 04/15/25 Assessment Summary Assessment Pt continues to progress demos improved mobility and pain control following session. Physical Therapy Plan Frequency and Duration Frequency of 1x/Week Treatment Duration of 6 treatment (weeks) Plan of Care Start 03/25/25 Date Plan of Care End 05/06/25 Date Next Visit Focus/Plan Next Note Type Treatment Note Next Visit Plan Joint mobs, STM, strengthening, gait training
--- NOTE | 2025-04-15 08:59 | PT.OTN ---
Current Diagnoses Other chronic pain (04/15/25) Pain in right shoulder (04/15/25) Pain in right ankle and joints of right foot (04/15/25) Pain in right foot (04/15/25) Pain in left foot (04/15/25) Physical Therapy Treatment Note PT-OP-A Visit Information Start: 01/21/25 15:37 Freq: Status: Active Protocol: Document 04/15/25 08:18 BL (Rec: 04/15/25 08:59 BL Laptop) Out-Patient Physical Therapy Visit Information Visit Information Visit Type Treatment Note Visit Start Time 08:15 Visit Stop Time 08:55 Visit Number 11 Number of TANKROOM TENDER Visits 0 PT-OP-B Current Condition Start: 01/21/25 15:37 Freq: Status: Active Protocol: Document 01/21/25 09:00 DCW (Rec: 01/21/25 16:18 DCW [id number]) Current Condition History of Current Condition Onset Date ~10 year history Current Complaints Right shoulder pain, bilateral foot pain History of Current Pt is a 49 year old male presenting with a ten year Condition history of right shoulder pain. Pt reports initial injury occurred weight-lifting while doing a press, hurt enough that he was unable to lift for six months, then slowly recovered, and then for the next ~8 years, didn't bother him. Starting one year ago, the pain returned with no apparent injury. 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 Has been fairly stable over the past year, but hoping pt will help in improve. Pt also complaining of bilateral, R>L foot pain. 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 Has a history of cuboid displacements bilaterally. Earlier this year had was was deemed an inflammation in both his great toe MTP, but was not gout. Recently has had fairly extensive soft tissue bruising along his medial right ankle, thinks it occurred following a day of standing for ~8 hours on concrete. Prior Treatments and Right ankle MRI: IMPRESSION: 1. 7 mm enhancing nodule Tests in the subcutaneous fat of the medial ankle, resulting in erosion and mild marrow edema of the medial tibial plafond. Recommend further evaluation with tissue sampling. This lesion should be accessible by ultrasound approach. 2. Marrow edema about the 2nd and 5th tarsometatarsal joint, favored to represent moderate degenerative changes. Additional marrow edema of the proximal 2nd metatarsal diaphysis, partially visualized and is nonspecific. 3. 9 mm ganglion cyst medial to the 1st tarsometatarsal joint. per Angelica La M.D. on 02/10/2024 Right foot x-ray: IMPRESSION: Mild degeneration. per Yuan Mendoza M.D. on 08/10/2024 PT-OP-C Subjective Start: 01/21/25 15:37 Freq: Status: Active Protocol: Document 04/15/25 08:18 BL (Rec: 04/15/25 08:59 BL Laptop) OP-PT Subjective Patient Comments Patient Comments Pt presents to the clinic this date and reports he is doing well, states resting has been good on his body, reports his ankles and feet are feeling pretty good. States continues to have slight pain through R lat shoulder with abduction. PT-OP-F Manual Assessment Start: 01/21/25 15:37 Freq: Status: Active Protocol: Document 01/21/25 09:00 DCW (Rec: 01/21/25 16:18 DCW [id number]) Manual Assessments Soft Tissue Assessment Soft Tissue Mobility Tenderness to palpation 2/4: pain with wincing along R Assessment subacromial space, R supraspinatus, R infraspinatus, R posterior tib tendon, R deltoid ligament Joint Mobility Assessment Joint Mobility Moderate passive and active restriction of right 1st Assessment MTP joint, severe restriction in 1st IP joint PT-OP-K Range of Motion Start: 01/21/25 15:37 Freq: Status: Active Protocol: Document 03/25/25 09:00 LFG (Rec: 03/25/25 09:55 LFG [id number]) Toe Range of Motion Toe Right Great Toe Toe ROM WFL Yes MTP Flexion Active ( 24 degrees) MTP Extension Active 40 (degrees) Comments st IP active flexion lacking 6? from neutral. IP extension to 10? PT-OP-L Special Tests Start: 01/21/25 15:37 Freq: Status: Active Protocol: Document 03/25/25 09:00 LFG (Rec: 03/25/25 09:55 LFG [id number]) Special Tests Shoulder Special Tests Painful Arc Test Results Positive R Lift-Off Rotator Cuff Test Results Negative Mata Jean Claude Impingement Test Results Mild Positive R Empty Can Test Results Positive R PT-OP-M Strength Start: 01/21/25 15:37 Freq: Status: Active Protocol: Document 01/21/25 09:00 DCW (Rec: 01/21/25 16:18 DCW [id number]) Shoulder Strength Shoulder Manual Muscle Testing Right Flexion 5 Normal Abduction (C5) 4 Good External Rotation 5 Normal Internal Rotation 5 Normal Left Flexion 5 Normal Abduction (C5) 5 Normal External Rotation 5 Normal Internal Rotation 5 Normal PT-OP-Q Treatments Start: 01/21/25 15:37 Freq: Status: Active Protocol: Document 04/15/25 08:18 BL (Rec: 04/15/25 08:59 BL Laptop) Therapeutic Exercises Prone Exercises I's, Y's, T's Prone Exercise Name IYT (reviewed) Side bilateral Equipment Used on red ball Comments cues to bring shoulders down and limit ROM Standing Exercises wall ball Standing Exercise flex/ext, horiz ab/add, CW/CCW circles Name Body Blade Standing Exercise at 90 deg of elbow flex, flex/ext, ER/IR, 90 deg shld Name flex: flex/ext, horiz Side right Resistance classic Comments PNF D2 pattern Wall Clock Reps/Minutes 10x Comments lvl 3 band, trialed at wrist with elbow flex for ER with increased difficul PT-OP-T Assessment and Plan Start: 01/21/25 15:37 Freq: Status: Active Protocol: Document 04/15/25 08:18 BL (Rec: 04/15/25 08:59 BL Laptop) Physical Therapy Assessment Goals Three Impairment ROM limitations in right great toe impact gait Bottle Blowing Machine Tender Goal (LTG) Pt to demonstrate improved great toe ROM to at least 45 ? extension at the MTP in order to help normalize gait pattern and reduce compensatory gait strategies. Pt demonstrated improved great toe ROM today with 40 deg of extension at the MTP joint - 03/25/25 LTG Duration 05/06/25 Two Impairment Pt limited in Jujitsu class due to right shoulder pain Skilled Nursing Goal (LTG) Pt to exhibit negative painful arc and empty can testing to demonstrate improved shoulder function and return to full participation in Jujitsu class. LTG Duration 05/06/25 One Impairment Pt does not have an appropriate home exercise program Short Term Goal (STG Pt to be independent and compliant with an appropriate ) HEP Pt has a few exercises in his current HEP but still progressing 03/25/25 STG Duration 04/15/25 Assessment Summary Assessment Pt continues to progress, suad improved symptoms with shoulder positioning and cueing for glenohumeral depression. Physical Therapy Plan Frequency and Duration Frequency of 1x/Week Treatment Duration of 6 treatment (weeks) Plan of Care Start 03/25/25 Date Plan of Care End 05/06/25 Date Next Visit Focus/Plan Next Note Type Treatment Note Next Visit Plan Joint mobs, STM, strengthening, gait training
--- NOTE | 2025-04-22 09:18 | PT.OTN ---
Current Diagnoses Other chronic pain (04/22/25) Pain in right shoulder (04/22/25) Pain in right ankle and joints of right foot (04/22/25) Pain in right foot (04/22/25) Pain in left foot (04/22/25) Physical Therapy Treatment Note PT-OP-A Visit Information Start: 01/21/25 15:37 Freq: Status: Active Protocol: Document 04/22/25 07:29 AB (Rec: 04/22/25 09:18 AB [id number]) Out-Patient Physical Therapy Visit Information Visit Information Visit Type Treatment Note Visit Start Time 07:37 Visit Stop Time 08:19 Visit Number 12 Number of PUBLIC RELATIONS WRITER Visits 1 PT-OP-B Current Condition Start: 01/21/25 15:37 Freq: Status: Active Protocol: Document 01/21/25 09:00 DCW (Rec: 01/21/25 16:18 DCW [id number]) Current Condition History of Current Condition Onset Date ~10 year history Current Complaints Right shoulder pain, bilateral foot pain History of Current Pt is a 49 year old male presenting with a ten year Condition history of right shoulder pain. Pt reports initial injury occurred weight-lifting while doing a press, hurt enough that he was unable to lift for six months, then slowly recovered, and then for the next ~8 years, didn't bother him. Starting one year ago, the pain returned with no apparent injury. 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 Has been fairly stable over the past year, but hoping pt will help in improve. Pt also complaining of bilateral, R>L foot pain. 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 Has a history of cuboid displacements bilaterally. Earlier this year had was was deemed an inflammation in both his great toe MTP, but was not gout. Recently has had fairly extensive soft tissue bruising along his medial right ankle, thinks it occurred following a day of standing for ~8 hours on concrete. Prior Treatments and Right ankle MRI: IMPRESSION: 1. 7 mm enhancing nodule Tests in the subcutaneous fat of the medial ankle, resulting in erosion and mild marrow edema of the medial tibial plafond. Recommend further evaluation with tissue sampling. This lesion should be accessible by ultrasound approach. 2. Marrow edema about the 2nd and 5th tarsometatarsal joint, favored to represent moderate degenerative changes. Additional marrow edema of the proximal 2nd metatarsal diaphysis, partially visualized and is nonspecific. 3. 9 mm ganglion cyst medial to the 1st tarsometatarsal joint. per Angelica La M.D. on 02/10/2024 Right foot x-ray: IMPRESSION: Mild degeneration. per Yuan Mendoza M.D. on 08/10/2024 PT-OP-C Subjective Start: 01/21/25 15:37 Freq: Status: Active Protocol: Document 04/22/25 07:29 AB (Rec: 04/22/25 09:18 AB [id number]) OP-PT Subjective Patient Comments Patient Comments Patient reports the R great toe has a tinge of pain when going over tree roots when hiking and a few steps after. Igor reports. Patient reports a rolling over sensation R sensation area of lat delt a 104 deg is where the sensation occurs, 145 AROM moving into scaption R shoulder. PT-OP-F Manual Assessment Start: 01/21/25 15:37 Freq: Status: Active Protocol: Document 01/21/25 09:00 DCW (Rec: 01/21/25 16:18 DCW [id number]) Manual Assessments Soft Tissue Assessment Soft Tissue Mobility Tenderness to palpation 2/4: pain with wincing along R Assessment subacromial space, R supraspinatus, R infraspinatus, R posterior tib tendon, R deltoid ligament Joint Mobility Assessment Joint Mobility Moderate passive and active restriction of right 1st Assessment MTP joint, severe restriction in 1st IP joint PT-OP-K Range of Motion Start: 01/21/25 15:37 Freq: Status: Active Protocol: Document 03/25/25 09:00 LFG (Rec: 03/25/25 09:55 LFG [id number]) Toe Range of Motion Toe Right Great Toe Toe ROM WFL Yes MTP Flexion Active ( 24 degrees) MTP Extension Active 40 (degrees) Comments st IP active flexion lacking 6? from neutral. IP extension to 10? PT-OP-L Special Tests Start: 01/21/25 15:37 Freq: Status: Active Protocol: Document 03/25/25 09:00 LFG (Rec: 03/25/25 09:55 LFG [id number]) Special Tests Shoulder Special Tests Painful Arc Test Results Positive R Lift-Off Rotator Cuff Test Results Negative Mata Jean Claude Impingement Test Results Mild Positive R Empty Can Test Results Positive R PT-OP-M Strength Start: 01/21/25 15:37 Freq: Status: Active Protocol: Document 01/21/25 09:00 DCW (Rec: 01/21/25 16:18 DCW [id number]) Shoulder Strength Shoulder Manual Muscle Testing Right Flexion 5 Normal Abduction (C5) 4 Good External Rotation 5 Normal Internal Rotation 5 Normal Left Flexion 5 Normal Abduction (C5) 5 Normal External Rotation 5 Normal Internal Rotation 5 Normal PT-OP-Q Treatments Start: 01/21/25 15:37 Freq: Status: Active Protocol: Document 04/22/25 07:29 AB (Rec: 04/22/25 09:18 AB [id number]) Therapeutic Exercises Prone Exercises I's, Y's, T's Prone Exercise Name YT (reviewed)HEP Resistance green [place] ball Equipment Used over [place] ball green Reps/Minutes 10# for T no weight for Y X 12 each Comments verbal and visual cues Standing Exercises cheerleaders Standing Exercise HEP Name Side bilateral Resistance [place] green band Reps/Minutes X 5 X 2 Comments verbal and visual cues toe ex Standing Exercise 1. toe yoga 2. great toe abd/arch lift Name Reps/Minutes 1. X 10 2 X 5 HEP Comments verbal cues pec stretch Standing Exercise single arm HEP Name Reps/Minutes 60 sec X 2 each UE Comments verbal and visual cues Body Blade Standing Exercise flex with UE straight Name Side right Resistance classic Comments X 10 standing calf stretches Standing Exercise gastroc and soleus active stretch off step Name Side bilateral Comments 60 sec each stretch X 2 rhythmic stabilization Standing Exercise 1. statue of liberty with therabar Name Side right Reps/Minutes 1. one min Manual Therapy Treatment Consent Patient gave verbal Yes consent for manual treatment Soft Tissue Mobilization Pec, post cuff, UT/lev scap Body Location pec R Mobilization Type Cross-Friction,Rolling Intensity/Depth Moderate Body Position Hooklying Joint Mobilizations TC R ankle Joint MWM Direction ap Grade IV Body Position 3X10 PT-OP-T Assessment and Plan Start: 01/21/25 15:37 Freq: Status: Active Protocol: Document 04/22/25 07:29 AB (Rec: 04/22/25 09:18 AB [id number]) Physical Therapy Assessment Goals Three Impairment ROM limitations in right great toe impact gait Tavern Operator Goal (LTG) Pt to demonstrate improved great toe ROM to at least 45 ? extension at the MTP in order to help normalize gait pattern and reduce compensatory gait strategies. Pt demonstrated improved great toe ROM today with 40 deg of extension at the MTP joint - 03/25/25 LTG Duration 05/06/25 Two Impairment Pt limited in Jujitsu class due to right shoulder pain Senior Living Goal (LTG) Pt to exhibit negative painful arc and empty can testing to demonstrate improved shoulder function and return to full participation in [employer] class. LTG Duration 05/06/25 One Impairment Pt does not have an appropriate home exercise program Short Term Goal (STG Pt to be independent and compliant with an appropriate ) HEP Pt has a few exercises in his current HEP but still progressing 03/25/25 STG Duration 04/15/25 Assessment Summary Assessment AROM R shoulder flexion 147 deg moves into scaption, reports shoulder feels good end of session, less discomfort 100 to 104 deg into movement. Physical Therapy Plan Frequency and Duration Frequency of 1x/Week Treatment Duration of 6 treatment (weeks) Plan of Care Start 03/25/25 Date Plan of Care End 05/06/25 Date Next Visit Focus/Plan Next Note Type Treatment Note Next Visit Plan Joint mobs, STM, strengthening, gait training
--- NOTE | 2025-04-29 09:36 | PT.OTN ---
Current Diagnoses Other chronic pain (04/29/25) Pain in right shoulder (04/29/25) Pain in right ankle and joints of right foot (04/29/25) Pain in right foot (04/29/25) Pain in left foot (04/29/25) Physical Therapy Treatment Note PT-OP-A Visit Information Start: 01/21/25 15:37 Freq: Status: Active Protocol: Document 04/29/25 09:08 DCW (Rec: 04/29/25 09:35 DCW [id number]) Out-Patient Physical Therapy Visit Information Visit Information Visit Type Discharge Summary Visit Start Time 09:07 Visit Stop Time 09:34 Visit Number 13 Number of CHIP MUCKER Visits 0 Evaluation Information Evaluation Date 01/21/25 PT-OP-B Current Condition Start: 01/21/25 15:37 Freq: Status: Active Protocol: Document 01/21/25 09:00 DCW (Rec: 01/21/25 16:18 DCW [id number]) Current Condition History of Current Condition Onset Date ~10 year history Current Complaints Right shoulder pain, bilateral foot pain History of Current Pt is a 49 year old male presenting with a ten year Condition history of right shoulder pain. Pt reports initial injury occurred weight-lifting while doing a press, hurt enough that he was unable to lift for six months, then slowly recovered, and then for the next ~8 years, didn't bother him. Starting one year ago, the pain returned with no apparent injury. 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 Notes it hurts in [employer] classes, with rotation of his right arm, and with overhead movement. Has been fairly stable over the past year, but hoping pt will help in improve. Pt also complaining of bilateral, R>L foot pain. 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 Has a history of cuboid displacements bilaterally. Earlier this year had was was deemed an inflammation in both his great toe MTP, but was not gout. Recently has had fairly extensive soft tissue bruising along his medial right ankle, thinks it occurred following a day of standing for ~8 hours on concrete. Prior Treatments and Right ankle MRI: IMPRESSION: 1. 7 mm enhancing nodule Tests in the subcutaneous fat of the medial ankle, resulting in erosion and mild marrow edema of the medial tibial plafond. Recommend further evaluation with tissue sampling. This lesion should be accessible by ultrasound approach. 2. Marrow edema about the 2nd and 5th tarsometatarsal joint, favored to represent moderate degenerative changes. Additional marrow edema of the proximal 2nd metatarsal diaphysis, partially visualized and is nonspecific. 3. 9 mm ganglion cyst medial to the 1st tarsometatarsal joint. per Angelica La M.D. on 02/10/2024 Right foot x-ray: IMPRESSION: Mild degeneration. per Yuan Mendoza M.D. on 08/10/2024 PT-OP-C Subjective Start: 01/21/25 15:37 Freq: Status: Active Protocol: Document 04/29/25 09:08 DCW (Rec: 04/29/25 09:35 DCW [id number]) OP-PT Subjective Patient Comments Patient Comments Pt reports everything is feeling quite a bit better. His foot feels good, and his shoulder, while still clicks, does not have the same pain associated with it. PT-OP-F Manual Assessment Start: 01/21/25 15:37 Freq: Status: Active Protocol: Document 01/21/25 09:00 DCW (Rec: 01/21/25 16:18 DCW [id number]) Manual Assessments Soft Tissue Assessment Soft Tissue Mobility Tenderness to palpation 2/4: pain with wincing along R Assessment subacromial space, R supraspinatus, R infraspinatus, R posterior tib tendon, R deltoid ligament Joint Mobility Assessment Joint Mobility Moderate passive and active restriction of right 1st Assessment MTP joint, severe restriction in 1st IP joint PT-OP-K Range of Motion Start: 01/21/25 15:37 Freq: Status: Active Protocol: Document 03/25/25 09:00 LFG (Rec: 03/25/25 09:55 LFG [id number]) Toe Range of Motion Toe Right Great Toe Toe ROM WFL Yes MTP Flexion Active ( 24 degrees) MTP Extension Active 40 (degrees) Comments st IP active flexion lacking 6? from neutral. IP extension to 10? PT-OP-L Special Tests Start: 01/21/25 15:37 Freq: Status: Active Protocol: Document 04/29/25 09:08 DCW (Rec: 04/29/25 09:36 DCW [id number]) Special Tests Shoulder Special Tests Painful Arc Test Results Negative Lift-Off Rotator Cuff Test Results Negative Mata Jean Claude Impingement Test Results Negative Empty Can Test Results Negative PT-OP-M Strength Start: 01/21/25 15:37 Freq: Status: Active Protocol: Document 01/21/25 09:00 DCW (Rec: 01/21/25 16:18 DCW [id number]) Shoulder Strength Shoulder Manual Muscle Testing Right Flexion 5 Normal Abduction (C5) 4 Good External Rotation 5 Normal Internal Rotation 5 Normal Left Flexion 5 Normal Abduction (C5) 5 Normal External Rotation 5 Normal Internal Rotation 5 Normal PT-OP-Q Treatments Start: 01/21/25 15:37 Freq: Status: Active Protocol: Document 04/29/25 09:08 DCW (Rec: 04/29/25 09:35 DCW [id number]) Manual Therapy Treatment Consent Patient gave verbal Yes consent for manual treatment Soft Tissue Mobilization Pec, post cuff, UT/lev scap Body Location R Pec, UT, Levator Mobilization Type Cross-Friction,Rolling Intensity/Depth Moderate Body Position Hooklying Joint Mobilizations Shoulder Joint R GH Direction Inferior Grade III Body Position Supine PT-OP-T Assessment and Plan Start: 01/21/25 15:37 Freq: Status: Active Protocol: Document 04/29/25 09:08 DCW (Rec: 04/29/25 09:35 DCW [id number]) Physical Therapy Assessment Goals Three Impairment ROM limitations in right great toe impact gait Record Pressman Goal (LTG) Pt to demonstrate improved great toe ROM to at least 45 ? extension at the MTP in order to help normalize gait pattern and reduce compensatory gait strategies. 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 LTG Duration Met One Impairment Pt does not have an appropriate home exercise program Short Term Goal (STG Pt to be independent and compliant with an appropriate ) HEP STG Duration Met Assessment Summary Assessment Pt feeling much better overall, has met or nearly met all goals. Feels like he is comfortable with his home exercises, just needs to find time to do them. Pt appropriate for discharge at this time. Physical Therapy Plan Frequency and Duration Frequency of 1x/Week Treatment Duration of 6 treatment (weeks) Plan of Care Start 03/25/25 Date Plan of Care End 05/06/25 Date Next Visit Focus/Plan Next Note Type Treatment Note Next Visit Plan Joint mobs, STM, strengthening, gait training
== END 2025-04-29 15:05 | disposition home or self-care (01) ==
LOC: PHYS 09:00
PROVIDERS: Family Provider Family Medicine; PCP Family Medicine; Referring Provider Family Medicine; Visit Provider Family Medicine
DX: M25.511 Pain in right shoulder (principal); G89.29 Other chronic pain; M79.671 Pain in right foot; M79.672 Pain in left foot; M25.571 Pain in right ankle and joints of right foot
CPT/HCPCS: 97110; 97140; 97163

== ENCOUNTER → 2025-07-13 08:32 | Outpatient (CLI) | payer OTHER, SELFPAY ==
[2025-07-13 10:59] LABS: Estradiol, Total 31.1 pg/mL
== END ==
PROVIDERS: PCP Family Medicine; Referring Provider Family Medicine; Visit Provider Urology
DX: R79.89 Other specified abnormal findings of blood chemistry (principal)
CPT/HCPCS: 36415; 82670; 84403